=== PATIENT | male | born 1960 ===

== ENCOUNTER 2017-07-26 11:30 | Inpatient (IN) | payer MEDICAID ==
[2017-07-26 12:02] LABS: BASO # 0.02 K/mm3 (0.0-2.0); BASO % 0.2 % (0.0-3.0); EOS # 0.3 (0.0-0.7); EOS % 2.8 % (1.5-5.0); GRAN # 5.83 (1.4-6.5); GRAN % 61.5 % (50.0-68.0); HEMOGLOBIN 15.9 g/dL (14.0-18.0); LYMPH # 2.6 (1.2-3.4); LYMPH % 27.2 % (22.0-35.0); MEAN CELL VOLUME 84.7 fl (80.0-105.0); MEAN CORPUSCULAR HEMOGLOBIN 28.3 pg (25.0-35.0); MEAN CORPUSCULAR HGB CONC 33.5 g/dl (31.0-37.0); MEAN PLATELET VOLUME 10.4 fl (7.0-11.0); MONO # 0.8 (0.1-0.6); MONO % 8.3 % (1.0-6.0); RBC 5.61 10^6/uL (3.5-6.1); WHITE BLOOD COUNT 9.5 10^3/ul (4.5-11.0)
[2017-07-26 12:11] LABS: INR 0.98 (0.93-1.08); PARTIAL THROMBOPLASTIN TIME 30.1 Seconds (25.1-36.5); PROTHROMBIN TIME 11.3 SECONDS (9.4-12.5)
--- NOTE | 2017-07-26 12:17 | ED PDOC ---
Arrival/HPI - General Historian: Patient - General Chief Complaint: Chest Pain Time Seen by Provider: 07/26/17 11:35 - History of Present Illness Narrative History of Present Illness (Text): 07/26/17 12:08 57yo male with PMHx of CAD with 2stents , hypertension present with complaint of chest pain described as "pressure" and SOB since this morning. He also complain of cough with the SOB. Symptoms is exertional. Denies fever, chills, recent URI, orthopnea, nausea, vomiting, abdominal pain, back pain, diaphoresis , any other complaint. (Fahad,Scott A) Past Medical History - Provider Review Nursing Documentation Reviewed: Yes - Cardiac Hx TN: Yes Hx Hypertension: Yes - Pulmonary Hx Respiratory Disorders: No - Neurological Hx Paralysis: No - HEENT Hx HEENT Disorder: Yes (WEARS RX GLASSES) - Renal Hx Renal Disorder: No - Endocrine/Metabolic Hx Diabetes Mellitus Type 1: Yes (dx 20 yr ago) - Hematological/Oncological Hx Blood Transfusions: No Hx Blood Transfusion Reaction: No Hx Leukemia: Yes - Integumentary Hx Dermatological Disorder: No - Musculoskeletal/Rheumatological Hx Musculoskeletal Disorders: No - Gastrointestinal Hx Gastrointestinal Disorders: No - Genitourinary/Gynecological Hx Genitourinary Disorders: No - Psychiatric Hx Emotional Abuse: No Hx Physical Abuse: No Hx Substance Use: No - Surgical History Hx Orthopedic Surgery: Yes (LEFT SHOULDER) - Anesthesia Hx Anesthesia Reactions: No Hx Malignant Hyperthermia: No - Suicidal Assessment Feels Threatened In Home Enviroment: No Family/Social History - Physician Review Nursing Documentation Reviewed: Yes Family/Social History: Unknown Family HX Smoking Status: Never Smoked Hx Alcohol Use: No Hx Substance Use: No Hx Substance Use Treatment: No Allergies/Home Meds Allergies/Adverse Reactions: Allergies No Known Allergies Allergy (Verified 07/26/17 11:41) Home Medications: Home Meds Medication Instructions Recorded Confirmed Insulin Detemir [Levemir] 40 units SC HS 07/05/13 07/26/17 Aspirin [Ecotrin] 81 mg PO DAILY 07/26/17 07/26/17 Insulin Aspart, Recombinant 20 units SC AC 07/26/17 07/26/17 [Novolog] Rosuvastatin Calcium [Crestor] 10 mg PO DAILY 07/26/17 07/26/17 Review of Systems - Physician Review All systems were reviewed & negative as marked: Yes - Review of Systems Constitutional: Normal Eyes: Normal ENT: Normal Respiratory: SOB, Cough. absent: Sputum, Wheezing, Other Cardiovascular: Chest Pain. absent: Palpitations, Edema, Calf Pain, Orthopnea Gastrointestinal: Normal Genitourinary Male: Normal Musculoskeletal: Normal Skin: Normal Neurological: Normal Endocrine: Normal Hemo/Lymphatic: Normal Psychiatric: Normal Physical Exam Vital Signs Reviewed: Yes Temperature: Afebrile Blood Pressure: Hypertensive Pulse: Tachycardic Respiratory Rate: Normal Appearance: Positive for: Well-Appearing, Non-Toxic, Comfortable Pain Distress: None Mental Status: Positive for: Alert and Oriented X 3 Finger Stick Blood Glucose: 190 - Systems Exam Head: Present: Atraumatic, Normocephalic Pupils: Present: PERRL Extroacular Muscles: Present: EOMI Conjunctiva: Present: Normal Mouth: Present: Moist Mucous Membranes Neck: Present: Normal Range of Motion Respiratory/Chest: Present: Clear to Auscultation, Good Air Exchange. No: Respiratory Distress, Accessory Muscle Use, Wheezes, Decreased Breath Sounds, Rales, Retracting, Rhonchi Cardiovascular: Present: Regular Rate and Rhythm, Normal S1, S2. No: Murmurs Abdomen: Present: Normal Bowel Sounds. No: Tenderness, Distention, Peritoneal Signs Back: Present: Normal Inspection Upper Extremity: Present: Normal Inspection. No: Cyanosis, Edema Lower Extremity: Present: Normal Inspection. No: Edema Neurological: Present: GCS=15, CN II-XII Intact, Speech Normal Skin: Present: Warm, Dry, Normal Color. No: Rashes Psychiatric: Present: Alert, Oriented x 3, Normal Insight, Normal Concentration Vital Signs Temp Pulse Pulse Resp BP Pulse Ox 07/26/17 15:46 72 177/93 H 07/26/17 15:12 96 H 194/106 H 07/26/17 15:01 194/106 H 07/26/17 14:50 88 88 15 203/122 H 07/26/17 13:54 89 20 191/121 H 100 07/26/17 11:39 97.1 F L 103 H 18 192/98 H 98 Medical Decision Making ED Course and Treatment: 07/26/17 19:41 PT in ED for stated history. He was hypertensive and tachy on presentation. His BP improved in ED with Lopressor. PT was a poor historian and unable to provide history of his home medications. Pt likely not complaint with his medications. His CE was negative in ED. CXR NAD EKG NSR with incomplete RBBB @ 99bpm. Review of pt's chart show that he had a negative stress test a year ago. He needs admission for further evaluation, secondary to his cardiac risk factors. Case was CORTES Taylor who is pt's Synthetic Resin Operator Case was CORTES Teresa and pt was admitted to her service. (Fahad,[facility] A) Dr. Taylor evaluated patient in ED. I administered lopressor and nitrates with improvement in BP. No active chest pain while in the ED. (Alin Montes) - Lab Interpretations Lab Results: 07/26/17 11:50 07/26/17 11:50 Lab Results 07/26/17 11:50: PT 11.3, INR 0.98, APTT 30.1 07/26/17 11:50: Sodium 141, Potassium 4.5, Chloride 105, Carbon Dioxide 26, Anion Gap 15, BUN 23 H, Creatinine 1.2, Est GFR ( Amer) > 60, Est GFR ( Non-Af Amer) > 60, Random Glucose 149 H, Calcium 10.4, Magnesium 2.2, Total Bilirubin 0.5, AST 27, ALT 38, Alkaline Phosphatase 62, Lactate Dehydrogenase 453, Total Creatine Kinase 121, Troponin I < 0.01 D, NT-Pro-B Natriuret Pep 41.3, Total Protein 7.9, Albumin 4.3, Globulin 3.5, Albumin/Globulin Ratio 1.2 07/26/17 11:50: WBC 9.5 D, RBC 5.61, Hgb 15.9, Hct 47.5, MCV 84.7, MCH 28.3, MCHC 33.5, RDW 15.0 H, Plt Count 232, MPV 10.4, Gran % 61.5, Lymph % (Auto) 27.2 , [place] % (Auto) 8.3 H, Eos % (Auto) 2.8, Baso % (Auto) 0.2, Gran # 5.83, Lymph # (Auto) 2.6, [place] # (Auto) 0.8 H, Eos # (Auto) 0.3, Baso # (Auto) 0.02 - RAD Interpretation Radiology Orders: 07/26/17 11:48 CHEST PORTABLE [RAD] Stat - Medication Orders Current Medication Orders: Aspirin (Ecotrin) 81 mg PO DAILY [facility] Atorvastatin Calcium (Lipitor) 20 mg PO DAILY [facility] Clopidogrel Bisulfate (Plavix) 75 mg PO DAILY [facility] Insulin Human Regular (Humulin R Med) 0 units SC ACHS [facility] PRN Reason: Protocol Isosorbide Mononitrate (Imdur Er) 30 mg PO DAILY [facility] Last Admin: 07/26/17 17:03 Dose: 30 mg Pantoprazole Sodium (Protonix Ec Tab) 40 mg PO DAILY [facility] Last Admin: 07/26/17 17:03 Dose: 40 mg Discontinued Medications Acetaminophen (Tylenol 325mg Tab) 650 mg PO STAT STA Stop: 07/26/17 19:51 Last Admin: 07/26/17 20:00 Dose: 650 mg MAR Pain/Vitals Document 07/26/17 20:00 SSE (Rec: 07/26/17 20:00 SSE [id number]) Pain Reassessment Is This A Pain ReAssessment? Yes Sleep Is patient sleeping during reassessment? No Presence of Pain Presence of Pain Yes Pain Scale Used Pain Scale Used Numeric Location Description Constant Intensity 8 Scale Used Numeric Aspirin (Aspirin) 325 mg PO STAT STA Stop: 07/26/17 11:48 Last Admin: 07/26/17 11:55 Dose: 325 mg Clopidogrel Bisulfate (Plavix) 300 mg PO STAT STA Stop: 07/26/17 15:12 Last Admin: 07/26/17 15:25 Dose: 300 mg Metoprolol Tartrate (Lopressor) 5 mg IVP STAT STA Stop: 07/26/17 15:03 Last Admin: 07/26/17 15:12 Dose: 5 mg IVP Administration Document 07/26/17 15:12 TA (Rec: 07/26/17 15:12 TA [id number]) Charges for Administration # of IVP Administrations 1 MAR Pulse and Blood Pressure Document 07/26/17 15:12 TA (Rec: 07/26/17 15:12 TA [id number]) Pulse Pulse Rate (60-90) 96 Blood Pressure Blood Pressure (100/60-150/90) 194/106 Metoprolol Tartrate (Lopressor) 25 mg PO BID STA Stop: 07/26/17 15:06 Last Admin: 07/26/17 17:03 Dose: 25 mg MAR Pulse and Blood Pressure Document 07/26/17 17:03 KATIE (Rec: 07/26/17 17:04 [id number]) Pulse Pulse Rate (60-90) 71 Blood Pressure Blood Pressure (100/60-150/90) 132/75 Nitroglycerin (Nitro-Bid 2% Oint) 1 ea TOP ONCE STA Stop: 07/26/17 13:55 Last Admin: 07/26/17 14:08 Dose: 1 ea Pneumococcal Polyvalent Vaccine (Pneumovax 23 Vaccine) 0.5 ml IM .ONCE ONE Stop: 07/26/17 15:08 Disposition/Present on Arrival - Present on Arrival Any Indicators Present on Arrival: No History of DVT/PE: No History of Uncontrolled Diabetes: No Urinary Catheter: No History of Decub. Ulcer: No History Surgical Site Infection Following: None - Disposition Have Diagnosis and Disposition been Completed?: Yes Disposition Time: 13:35 Patient Plan: Admission - Disposition Diagnosis: Chest pain, Uncontrolled hypertension Disposition: HOSPITALIZED Patient Problems: Current Active Problems Problem Status Onset Chest pain Acute Uncontrolled hypertension Acute Condition: FAIR
[2017-07-26 12:18] LABS: ALB/GLOB RATIO 1.2 (1.1-1.8); ALBUMIN 4.3 g/dL (3.0-4.8); ALT/SGPT 38 U/L (7-56); AST/SGOT 27 U/L (17-59); BLOOD UREA NITROGEN 23 mg/dL (7-21); CALCIUM 10.4 mg/dL (8.4-10.5); GFR AFRICAN-AMERICAN > 60; GFR NON-AFRICAN AMERICAN > 60
[2017-07-26 12:24] LABS: B-TYPE NATRIURETIC PEPTIDE 41.3 pg/mL (0-450); TROPONIN I < 0.01 ng/mL
--- NOTE | 2017-07-26 13:03 | RAD ---
HISTORY: chest pain COMPARISON: 04/03/2015 open FINDINGS: LUNGS: No active pulmonary disease. PLEURA: No significant pleural effusion identified, no pneumothorax apparent. CARDIOVASCULAR: No radiographic findings to suggest acute or significant cardiovascular disease. OSSEOUS STRUCTURES: No significant abnormalities. VISUALIZED UPPER ABDOMEN: Normal. OTHER FINDINGS: None. IMPRESSION: No active disease. No significant interval change compared to the prior examination(s).
[2017-07-26] MEDS ORDERED: Nitroglycerin 2% Ointment Foilpak UD TOP STA (13:54)
[2017-07-26] MEDS ORDERED: Metoprolol 1 mg/ml Inj IVP STA (15:02)
[2017-07-26 15:07] VITALS: BMI 24.2
[2017-07-26] MEDS ORDERED: Pneumococcal 23-Valent Vaccine IM ONE (15:07)
[2017-07-26] MEDS ORDERED: Influenza Vaccine 60 mcg/0.5 mL SYR (4YR UP) IM ONE (15:07)
--- NOTE | 2017-07-26 16:42 | CARD ---
APPROVED REPORT EKG Measurement Heart [id number] <Conclusion> Poor data quality, interpretation may be adversely affected Normal sinus rhythm Incomplete right bundle branch block Borderline ECG
[2017-07-26] MEDS: Pantoprazole 40 mg EC Tab PO SCH (17:03)
[2017-07-27 07:27] LABS: HDL CHOLESTEROL 39 mg/dL (29-60)
[2017-07-27 07:38] LABS: LDL CHOLESTEROL 145 mg/dL (0-129); TROPONIN I < 0.01 ng/mL
[2017-07-27] MEDS: Insulin Reg-MEDIUM-Coverage SC SCH ×4 (08:37→23:50)
[2017-07-27] MEDS: Pantoprazole 40 mg EC Tab PO SCH (09:48)
--- NOTE | 2017-07-27 12:10 | PN ---
DATE: 07/27/2017 LOCATION: The patient is in room 364, bed 2. REASON FOR CONSULTATION: Chest pain, coronary artery disease, history of stent insertion, hypertension, diabetes and hypercholesterolemia. SUBJECTIVE: The patient lying flat in bed without any shortness of breath. Denies palpitations. His chest pain has improved. PHYSICAL EXAMINATION VITAL SIGNS: Blood pressure 116/64, respirations 20, pulse 76, temperature 97.4. HEENT: Head is normocephalic. Pupils normal. Conjunctivae normal. Nose and throat normal. NECK: JVP low. Carotids equal. THORAX: AP diameter normal. LUNGS: Clear. CARDIOVASCULAR: S1 and S2. ABDOMEN: Soft. No tenderness. No organomegaly. Bowel sounds normal. EXTREMITIES: No clubbing. No cyanosis. LABORATORY DATA: WBC 9.5, hemoglobin 15.9, hematocrit 47.5 and platelets 232,000. Sodium 141, potassium 4.5, BUN 23, creatinine 1.2, random , random glucose 149, troponin less than 0.01, triglycerides 184, cholesterol 227, LDL 145, HDL 39. TSH 3.76. DIAGNOSES: Coronary artery disease, chest pain, new onset of angina from last few weeks, hypertension, diabetes, hypercholesterolemia. PLAN: Patient already started on Lopressor; Imdur; patient was started on aspirin 81 mg daily; isosorbide mononitrate 30 mg daily; Lipitor 20 mg daily; metoprolol 25 mg b.i.d.; Plavix 300 mg loading dose was given yesterday, from today, patient is on 75 mg daily; Protonix 40 daily. Fingerstick sugar coverage started. Patient will need cardiac catheterization, we will try to arrange for tomorrow morning. We will put n.p.o. alvin. We will follow. Pauline Taylor MD
--- NOTE | 2017-07-28 00:25 | HP ---
CHIEF COMPLAINT: Chest pain. HISTORY OF PRESENT ILLNESS: Mr. Teodoro Russo is a 57-year-old male with past medical history of coronary artery disease with two cardiac stents, hypertension, insulin-dependent diabetes mellitus, noncompliance, history of leukemia, came with pressure and shortness of breath on the day of admission and is complaining of cough with shortness of breath. Symptoms increased with exertion; however, no fever, no chills. No nausea, vomiting, diarrhea. Denies upper respiratory tract infection symptoms. No diaphoresis. PAST MEDICAL HISTORY: As above; history of RI; hypertension; diabetes mellitus type 1, insulin requiring; history of leukemia; orthopedic surgery of the left shoulder. FAMILY HISTORY: Father and mother, noncontributory. HABITS: Never smoked. No drug. No ethanol. ALLERGIES: PATIENT IS NOT ALLERGIC WITH ANY MEDICATIONS. HOME MEDICATIONS: Levemir, Ecotrin, insulin, Crestor. REVIEW OF SYSTEMS: Patient was examined at the bedside on 07/27/2017 and looking comfortable. No nausea, vomiting, or diarrhea. No hematuria or hematochezia. Still having pressure. No shortness of breath. No sputum or wheezing. No palpitation or orthopnea, but sometime still coughing. No fever, no chills. PHYSICAL EXAMINATION: VITAL SIGNS: Temperature 98.6, pulse 84, blood pressure 114/70, respiratory rate 20. HEENT: Head normocephalic, atraumatic. Eyes PERRLA. Extraocular muscles intact. Conjunctivae clear. Nose patent. Mucous membrane moist. NECK: Supple. No carotid bruit. No JVD. No thyromegaly. CHEST: Bilaterally symmetrical. HEART: S1, S2 positive. LUNGS: Clear to auscultation. ABDOMEN: Soft. Bowel sounds present. No organomegaly. EXTREMITIES: No edema. No cyanosis. NEUROLOGICAL: Patient is awake and alert. Follows simple commands. LABORATORY DATA: White blood cell 9.5, hemoglobin 15.9, hematocrit 47.5, platelets 232. Glucose 245, 183. Cholesterol 227, triglyceride 184. ASSESSMENT AND PLAN: Mr. Teodoro Russo is a 57-year-old male with insulin-dependent diabetes mellitus type 1; hypercholesterolemia; hypertriglyceridemia; history of leukemia, got chemotherapy; history of coronary artery disease, status post cardiac stenting, came with chest pain, new onset angina for last few weeks, hypertension. Patient was started on Lopressor, Imdur. Started on aspirin, isosorbide, Lipitor, metoprolol, Plavix loading dose given yesterday and now on Plavix 75, Protonix 40, getting fingerstick and sliding scale. Catheterization tomorrow and after that if everything is okay, tomorrow evening, we will discharge the patient. Meanwhile, continue present treatment, repeat labs. We will follow up. Appreciated Dr. Taylor's input. Pratibha Teresa MD
[2017-07-28 06:58] VITALS: O2SAT 96
[2017-07-28] MEDS: Insulin Reg-MEDIUM-Coverage SC SCH (07:23)
[2017-07-28] MEDS ORDERED: Phenylephrine 10 mg/ml Inj ONE (08:44)
[2017-07-28] MEDS ORDERED: HEPARIN SODIUM/NS 2,000 ML IV ONE (08:44)
[2017-07-28] MEDS ORDERED: Lidocaine 2% Inj (20ml) ONE (08:44)
[2017-07-28] MEDS ORDERED: Nitroglycerin 50mg in D5W 50 MG/250 ML BOTTLE IV ONE (08:44)
[2017-07-28] MEDS ORDERED: Verapamil 2 ML ONE (08:44)
[2017-07-28] MEDS ORDERED: Iohexol 350 MG/100 ML VIAL ONE (08:45)
[2017-07-28] MEDS ORDERED: Iohexol 350mgl/ml 50 ML ONE (08:45)
[2017-07-28] MEDS ORDERED: Midazolam 2 MG/2 ML VIAL ONE (09:05)
[2017-07-28] MEDS ORDERED: Eptifibatide 20 mg/10mL Inj IVP ONE (09:33)
--- NOTE | 2017-07-28 09:36 | CON ---
DATE: 07/26/2017 LOCATION: The patient in emergency room. REASON FOR CONSULTATION: Chest pain. HISTORY OF PRESENT ILLNESS: The patient is a 57-year-old male who has history of coronary artery disease, status post LAD stent on 07/06/[address] Perez Roca, diabetes mellitus, hypertension, hyperlipidemia, admitted with a history that since last few weeks he is getting chest pain on exertion. Since he had the stent, he did not have any pain but this started few weeks ago and once he stops, the patient's pain disappears, also he gets pain if he carries shopping bag or go upstairs and sometimes he also breaks out sweating with this pain. PAST MEDICAL HISTORY: Significant for diabetes mellitus, hypertension, hyperlipidemia, coronary artery disease, status post MO about 6 to 7 years ago. Patient was taken to [facility] at that time with stent in LAD was put in and later on patient had another stent done by Dr. Perez Roca on 07/06/2013 again in LAD, drug-eluting stent was inserted. Patient is a known case of diabetes mellitus, hypertension, hyperlipidemia. SOCIAL HISTORY: Denies smoking. Denies drinking. ALLERGIES: PATIENT DENIES ANY ALLERGIES. MEDICATIONS: Patient's home medication were Crestor 10 mg daily, aspirin 81 mg daily, Levemir 40 units subcu at bedtime, NovoLog 20 units subcu before meals. FAMILY HISTORY: Not significant. PHYSICAL EXAMINATION: VITAL SIGNS: On examination, blood pressure is 194/106, respirations 18, pulse 88. Patient is afebrile. HEENT: Head is normocephalic. Eyes: Pupils normal, conjunctivae normal. Nose and throat normal. NECK: JVP low. Carotid equal. THORAX: AP diameter normal. LUNGS: Clear. CARDIOVASCULAR: S1 and S2. ABDOMEN: Soft. No tenderness. No organomegaly. Bowel sounds normal. EXTREMITIES: No clubbing. No cyanosis. LABORATORY DATA: Shows WBC 9.5, hemoglobin 15.9, hematocrit 47.5, platelet 232. Sodium 141, potassium 4.5, BUN 15, creatinine 1.2. Random sugar 149. AST, ALT normal. Troponin less than 0.01. Protein and albumin normal. PT/INR, PTT normal. DIAGNOSTIC DATA: Chest x-ray, no significant abnormality. EKG showed regular sinus rhythm, ST-T changes. DIAGNOSES: Chest pain, recent onset of angina, coronary artery disease, history of two stents in the left anterior descending in the past, hypertension, diabetes mellitus, hyperlipidemia. PLAN: Patient had stress test on 07/24/2016, which showed fixed defect with ejection fraction of 78%. Echo on 04/05/2015 showed normal chamber sizes, EF 75%, trace mitral regurgitation, trace tricuspid regurgitation, RVSP 19 mmHg. I will give loading dose of Plavix 300 mg p.o. today and then 75 daily, Ecotrin 81 mg daily, Lopressor 25 b.i.d., Lipitor 20 mg daily, Imdur 30 p.o. daily, Protonix 40 daily, aspirin 81 mg daily, already received 325 mg p.o. today. Fingerstick sugar coverage. Patient will need cardiac catheterization. We will repeat troponin and EKG. We will follow. Pauline Taylor MD
[2017-07-28] MEDS ORDERED: Sodium Chloride 0.9% 1,000 ML IV SCH (10:45)
[2017-07-28 12:40] VITALS: TEMP 97.8
[2017-07-28] MEDS: Insulin Reg-LOW-Coverage SC SCH ×2 (12:41→17:03)
[2017-07-28] MEDS: Pantoprazole 40 mg EC Tab PO SCH (12:44)
--- NOTE | 2017-07-28 12:46 | CARD ---
APPROVED REPORT EKG Measurement Heart [id number] [id number] <Conclusion> Normal sinus rhythm NSSTW changes Prolonged QTc
[2017-07-28 13:06] LABS: BASO # 0.01 K/mm3 (0.0-2.0); BASO % 0.1 % (0.0-3.0); EOS % 0.2 % (1.5-5.0); GRAN # 11.05 (1.4-6.5); GRAN % 86.9 % (50.0-68.0); HEMOGLOBIN 14.3 g/dL (14.0-18.0); LYMPH # 1.1 (1.2-3.4); LYMPH % 8.6 % (22.0-35.0); MEAN CELL VOLUME 83.8 fl (80.0-105.0); MEAN CORPUSCULAR HGB CONC 33.4 g/dl (31.0-37.0); MEAN PLATELET VOLUME 9.7 fl (7.0-11.0); MONO # 0.5 (0.1-0.6); MONO % 4.2 % (1.0-6.0); RBC 5.11 10^6/uL (3.5-6.1); RED CELL DISTRIBUTION WIDTH 14.5 % (11.5-14.5); WHITE BLOOD COUNT 12.7 10^3/ul (4.5-11.0)
[2017-07-28 13:16] VITALS: RESP 20
--- NOTE | 2017-07-28 13:28 | CARD ---
APPROVED REPORT Procedure(s) performed: Left Heart Catheterization PTCA with Stenting of Mid LAD with TAMIKO PTCA with Stenting of Proximal LAD with TAMIKO HISTORY 7 days), diabetes mellitus with insulin treatment , previous diagnostic cath, previous PCI (The PCI date was 06/26/2013), hypertension , dyslipidemia , Hx of PTCA twice admitted with ACS/ Unstable angina, Hx of Leukemia s/p Chemo on remission, Hx of DM T2 and HTN as well.. INDICATION The indication(s) include : unstable angina . CASE TECHNIQUE The patient was brought urgently to the Cardiac Catheterization Laboratory in a fasting state and was prepped and draped in a sterile manner. The left wrist was infiltrated with 2% Lidocaine subcutaneous anesthesia. A 6FR GLIDESHEATH ACCESS KIT sheath was inserted into the left radial artery without difficulty. Coronary angiography was performed using coronary diagnostic catheters. The left coronary system was accessed and visualized with a Diagnostic ,5 Fr JL 4 catheter. The right coronary system was accessed and visualized with a Diagnostic ,5 Fr JR 3.5 catheter. The left ventricle was accessed and visualized with a 5 Fr Pigtail 145 (Angled) catheter. Left ventricular/Aortic Valve gradient assessed on pullback. Left ventriculogram was performed in EVANS projection. The patient tolerated the procedure well and there were no complications associated with the procedure. Vessel Analysis The patient's coronary anatomy is left dominant. The left main coronary artery is a medium size vessel with diffuse calcification noted throughout this vessel and without significant stenosis. There is a 20-30% stenosis in the ostial segment. The left main bifurcates to the left anterior descending and circumflex. The left anterior descending artery is a medium size vessel with diffuse calcification noted throughout this vessel and with significant stenosis. There is a 80-90% stenosis in the proximal segment. instent restenosis, and Mid LAD has Multiple 80-90% stenoses. The first diagonal branch is a small size vessel with diffuse calcification noted throughout this vessel and without significant stenosis. The second diagonal branch is a medium size vessel with diffuse calcification noted throughout this vessel and without significant stenosis. The circumflex artery is a medium size vessel with diffuse calcification noted throughout this vessel and without significant stenosis. patent stent in Mid segment There is a 40% stenosis in the distal segment. The first obtuse marginal branch is a small size vessel with diffuse calcification noted throughout this vessel and without significant stenosis. The second obtuse marginal branch is a small size vessel with diffuse calcification noted throughout this vessel and without significant stenosis. The left posterior descending artery is a medium size vessel with diffuse calcification noted throughout this vessel and without significant stenosis. The right coronary artery is a small size vessel with diffuse calcification noted throughout this vessel and without significant stenosis. There is a 60-70% stenosis in the mid segment. Non dominant smal artery Left Ventricle The left ventricle is normal in size with normal contractility. There was no cardiomyopathy. The left ventricular ejection fraction is estimated to be 60-65%. The left ventricular end diastolic pressure is 18 mmHg. There was no gradient across the aortic valve upon pullback. PCI Technique Lesion Anticoagulation was achieved with Heparin. Percutaneous coronary intervention was performed on the mid left anterior descending artery segment. The lesion stenosis prior to intervention was 80-90% with GUILLERMO 1 flow. A 6 Fr XB 3 Guide Catheter was used to engage the ostium. A Luge 182 Interventional Guidewire was used to cross the lesion. BALLOON DILATION A Balloon catheter 2.0 x 15 mm Mini Trek RX was inserted and inflated up to 8.00atm for 19seconds. STENT DEPLOYMENT A drug-eluting stent 2.5 x 30 mm Resolute TAMIKO was inserted and inflated up to 8.00atm for 19seconds. Final angiography reveals 0 % stenosis with GUILLERMO 3 flow. PCI Technique Lesion 2 Percutaneous Coronary Intervention was performed on the proximal left anterior descending artery segment. The lesion stenosis prior to intervention was 80-90% with GUILLERMO 1 flow. A 6 Fr XB 3 Guide Catheter was used to engage the ostium. A Luge 182 Interventional Guidewire was used to cross the lesion. BALLOON DILATION A Balloon catheter 2.0 x 15 mm Mini Trek RX was inserted and inflated up to lucina for seconds. then we used Scorring Balloon 2.5/10 and did PTCA for Instent restenosis for 10 atnos STENT DEPLOYMENT A drug-eluting stent 2.5 x 30 mm Resolute TAMIKO was inserted and inflated up to 10.00atm for 21seconds. and in Between two stent we put 2.5/8 at 14 atmosphere Final angiography reveals 0 % stenosis with GUILLERMO 3 flow. Conclusion High grade Stenosis In Proximal Instent restenosis 80-90%, and Mid LAD has multiple Stenosis 80-90%. Patent Stent Mid Dominant Circumflex. Preserved LV FX. EF-60-65%, EDP_18 mmof Hg. Successful PTCA with TAMIKO of Proximal and Mid LAD. Recommendations Cardiac Rehabilitation ReferralDaily ASA with Plavix for at least one year Aggressive Medical TherapyCardiac Risk Reduction Program CC; drs. Teresa/ Brandon.
[2017-07-28 13:29] LABS: BLOOD UREA NITROGEN 17 mg/dL (7-21); CALCIUM 9.3 mg/dL (8.4-10.5); GFR AFRICAN-AMERICAN > 60; GFR NON-AFRICAN AMERICAN > 60
[2017-07-28] MEDS ORDERED: Bacitracin 500 Units/gm Oint Foilpak UD ONE (15:06)
--- NOTE | 2017-07-28 16:18 | PN ---
DATE: 07/28/2017 REASON FOR THE CONSULTATION AND FOLLOWUP: Unstable angina, the patient on vent, status post PTCA with drug-eluting stents, two stents in LAD. SUBJECTIVE: Denies any chest pain, shortness of breath, any palpitation. PHYSICAL EXAMINATION: VITAL SIGNS: Temperature afebrile, heart rate 79, blood pressure ____. HEENT: PERRLA. Extraocular muscles intact. NECK: Supple. No carotid bruit. No thyromegaly. CHEST: Clear to auscultation. HEART: S1 and S2 regular. ABDOMEN: Soft. EXTREMITIES: Clubbing and cyanosis, negative. LABORATORY DATA: Blood workup as follows: WBC on admission 9.5, hemoglobin 15.9, hematocrit of 47.5, platelet count 232,000. Chemistry on admission: Sodium 141, potassium 4.5, chloride 105, carbon dioxide 26, anion gap of 15, BUN , creatinine 1.2, total cholesterol 227, triglycerides 184, LDL 145, HDL 39, TSH 3.79, troponin 0.02 x negative. IMPRESSION: Acute coronary syndrome, unstable angina, diabetes, hypertension, hyperlipidemia, history of coronary artery disease, status post myocardial infarction six to seven years ago, the patient has been in [facility] at that time with a stent in the left anterior descending. Later on, the patient had another stent by Dr. Perez Suero on 07/06/2013, possibly in the circumflex, who admitted yesterday with unstable angina; history of leukemia, on remission, being treated at [facility]. Admitted yesterday with unstable angina. The patient underwent cardiac catheterization that revealed left main ostial 20%-30% stenosis, dominant circumflex, patent stent. Distal to the stent, 30-40% stenosis noted. Left anterior descending has proximal stent noted, in-stent is 80% to 90% noted and mild left anterior descending is long tubular, 80-90% stenosis noted. Nondominant right coronary artery. Left ventriculogram shows ejection fraction 55%-60%, end diastolic pressure in the range of 18. In view of above, two stents were placed, drug-eluting stent in the proximal and mid left anterior descending, 2.5 mm diameter, 30 mm length and in between the 2 stents, another 8 mm stent, 2.5, was placed between two stents. The patient successfully tolerated the procedure well. Left radial approach was done. PLAN: To start beta-rolando, 25 mg of Lopressor twice a day, start losartan 25 mg daily, insulin coverage and we will discontinue nitroglycerin. Continue aspirin, continue Plavix mandatory for 1 year, preferably for extended period of time. Increase atorvastatin to 40 mg daily. Discussed with the daughter, Urmila, on the telephone in length and explained the patient's condition who is in [place], telephone number [phone]. Also, explained to the patient. We will discuss with you. Thank you, Dr. Teresa, for providing us the opportunity in taking care of the patient, Teodoro Karan. Pauline Joseph MD
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
[2017-07-28 17:11] VITALS: BP 129/70; PULSE 81
== END 2017-07-28 17:55 | disposition home or self-care (01) | DRG 854 ==
LOC: ED 11:30 → ERH 13:57 → 2RNO 16:16
PROVIDERS: ADMIT Internal Medicine; ATTEND Internal Medicine
PROC: 027035Z Dilation of Coronary Artery, One Artery with Two Drug-eluting Intraluminal Devices, Percutaneous Approach (ICD-10-PCS; principal; 2017-07-28)
PROC: 4A023N7 Measurement of Cardiac Sampling and Pressure, Left Heart, Percutaneous Approach (ICD-10-PCS; 2017-07-28)
PROC: B2111ZZ Fluoroscopy of Multiple Coronary Arteries using Low Osmolar Contrast (ICD-10-PCS; 2017-07-28)
PROC: B2151ZZ Fluoroscopy of Left Heart using Low Osmolar Contrast (ICD-10-PCS; 2017-07-28)
DX: I25.110 Atherosclerotic heart disease of native coronary artery with unstable angina pectoris (principal); T82.855A Stenosis of coronary artery stent, initial encounter; G90.511 Complex regional pain syndrome I of right upper limb; B19.20 Unspecified viral hepatitis C without hepatic coma; I10 Essential (primary) hypertension; E10.9 Type 1 diabetes mellitus without complications; E78.1 Pure hyperglyceridemia; E78.00 Pure hypercholesterolemia, unspecified; G47.00 Insomnia, unspecified; F31.9 Bipolar disorder, unspecified; F43.10 Post-traumatic stress disorder, unspecified; Y83.1 Surgical operation with implant of artificial internal device as the cause of abnormal reaction of the patient, or of later complication, without mention of misadventure at the time of the procedure; Z92.21 Personal history of antineoplastic chemotherapy; I25.2 Old myocardial infarction; Z79.4 Long term (current) use of insulin; Z91.19 Patient's noncompliance with other medical treatment and regimen; Z85.6 Personal history of leukemia

== ENCOUNTER 2017-11-27 06:10 | Day surgery (SDC) | payer MEDICAID ==
[2017-11-27 06:14] VITALS: BMI 22.9
[2017-11-27 06:15] VITALS: O2SAT 98
--- NOTE | 2017-11-27 06:34 | ED PDOC ---
Arrival/HPI - General Chief Complaint: Chest Pain Time Seen by Provider: 11/27/17 06:16 Historian: Patient - History of Present Illness Narrative History of Present Illness (Text): 11/27/17 06:34 Teodoro Russo is a 57 year old male, whose past medical history includes diabetes, hypertension, and CAD s/p OR with 2 coronary stents, who presents to the Emergency department complaining of chest pain recently. Patient notes he was seen by his occupational health professional yesterday. Patient states this morning he woke up with chest pressure again and was advised to come to the ER for further evaluation. Patient took Plavix and Brilinta at home prior to arrival. Patient denies any fever, chills, shortness of breath, nausea, back pain, neck pain, headache, dizziness, or any other complaints. Agency Sales Development Associate: Dr. Joseph Symptom Onset: Gradual Symptom Course: Unchanged Quality: Pressure Activities at Onset: Light Context: Home Past Medical History - Provider Review Nursing Documentation Reviewed: Yes - Infectious Disease Hx of Infectious Diseases: None - Cardiac Hx OR: Yes Hx Hypertension: Yes - Pulmonary Hx Respiratory Disorders: No - Neurological Hx Paralysis: No - HEENT Hx HEENT Disorder: Yes (WEARS RX GLASSES) - Renal Hx Renal Disorder: No - Endocrine/Metabolic Hx Diabetes Mellitus Type 1: Yes (dx 20 yr ago) - Hematological/Oncological Hx Blood Transfusions: No Hx Blood Transfusion Reaction: No Hx Leukemia: Yes - Integumentary Hx Dermatological Disorder: No - Musculoskeletal/Rheumatological Hx Musculoskeletal Disorders: No - Gastrointestinal Hx Gastrointestinal Disorders: No - Genitourinary/Gynecological Hx Genitourinary Disorders: No - Psychiatric Hx Emotional Abuse: No Hx Physical Abuse: No Hx Substance Use: No - Surgical History Hx Cardiac Catheterization: Yes (stent x4) Hx Orthopedic Surgery: Yes (LEFT SHOULDER) - Anesthesia Hx Anesthesia Reactions: No Hx Malignant Hyperthermia: No - Suicidal Assessment Feels Threatened In Home Enviroment: No Family/Social History - Physician Review Nursing Documentation Reviewed: Yes Family/Social History: Unknown Family HX Smoking Status: Never Smoked Hx Alcohol Use: No Hx Substance Use: No Hx Substance Use Treatment: No Allergies/Home Meds Allergies/Adverse Reactions: Allergies No Known Allergies Allergy (Verified 11/27/17 06:14) Home Medications: Home Meds Medication Instructions Recorded Confirmed Insulin Detemir [Levemir] 40 units SC HS 07/05/13 11/27/17 Aspirin [Ecotrin] 81 mg PO DAILY 07/26/17 11/27/17 Insulin Aspart, Recombinant 20 units SC AC 07/26/17 11/27/17 [Novolog] Atorvastatin [Lipitor] 80 mg PO HS 11/27/17 11/27/17 DULoxetine [Cymbalta] 30 mg PO DAILY 11/27/17 11/27/17 Digoxin [Digitek] 125 mcg PO DAILY 11/27/17 11/27/17 Ergocalciferol (Vitamin D2) 50,000 unit PO QWK 11/27/17 11/27/17 [Vitamin D2] Ibuprofen [Motrin Tab] 800 mg PO Q8 PRN 11/27/17 11/27/17 Montelukast Sodium [Singulair] 10 mg PO DAILY 11/27/17 11/27/17 Nitroglycerin [Nitrostat] 0.4 mg SL Q15MIN PRN 11/27/17 11/27/17 Ticagrelor [Brilinta] 90 mg PO BID 11/27/17 11/27/17 Review of Systems - Physician Review All systems were reviewed & negative as marked: Yes - Review of Systems Constitutional: Normal. absent: Fevers Eyes: Normal ENT: Normal Respiratory: Normal. absent: SOB, Cough Cardiovascular: Chest Pain Gastrointestinal: Normal. absent: Abdominal Pain, Diarrhea, Nausea, Vomiting Genitourinary Male: Normal. absent: Dysuria, Frequency, Hematuria, Urinary Output Changes Musculoskeletal: Normal. absent: Back Pain, Neck Pain Skin: Normal. absent: Rash Neurological: Normal. absent: Headache, Dizziness Endocrine: Normal Hemo/Lymphatic: Normal Psychiatric: Normal Physical Exam Vital Signs Reviewed: Yes Vital Signs Pulse Resp BP Pulse Ox 11/27/17 06:14 79 18 130/71 98 Temperature: Afebrile Blood Pressure: Normal Pulse: Regular Respiratory Rate: Normal Appearance: Positive for: Well-Appearing, Non-Toxic, Comfortable Pain Distress: None Mental Status: Positive for: Alert and Oriented X 3 - Systems Exam Head: Present: Atraumatic, Normocephalic Pupils: Present: PERRL Extroacular Muscles: Present: EOMI Conjunctiva: Present: Normal Mouth: Present: Moist Mucous Membranes Neck: Present: Normal Range of Motion. No: Meningeal Signs, MIDLINE TENDERNESS , Paraspinal Tenderness Respiratory/Chest: Present: Clear to Auscultation, Good Air Exchange. No: Respiratory Distress, Accessory Muscle Use Cardiovascular: Present: Regular Rate and Rhythm, Normal S1, S2. No: Murmurs Abdomen: No: Tenderness, Distention, Peritoneal Signs Back: Present: Normal Inspection. No: CVA Tenderness, Midline Tenderness, Paraspinal Tenderness Upper Extremity: Present: Normal Inspection. No: Cyanosis, Edema Lower Extremity: Present: Normal Inspection. No: Edema Neurological: Present: GCS=15, CN II-XII Intact, Speech Normal, Motor Func Grossly Intact, Normal Sensory Function, Normal Cerebellar Funct Skin: Present: Warm, Dry, Normal Color. No: Rashes Psychiatric: Present: Alert, Oriented x 3, Normal Insight, Normal Concentration Medical Decision Making ED Course and Treatment: 11/27/17 06:34 Impression: 57 year old male presents with chest pressure. Plan: -- EKG -- Chest X-ray -- Labs, cardiac enzymes, digoxin level -- Reassess and disposition Prior Visits: Notes and results from previous visits were reviewed. On 07/26/2017, pt was seen in the Emergency department for chest pain and shortness of breath. Pt was admitted to the hospital for further evaluation. Progress Notes: Reviewed EKG, NSR at 71 bpm. Incomplete RBBB. Non-specific ST/T wave changes. 11/27/17 07:02 Case discussed with patients occupational health professional .Requested patient admitted to cardiac catheter suite for further intervention. - RAD Interpretation Narrative RAD Interpretations (Text): 11/27/17 06:58 CXR- No acute process Radiology Orders: 11/27/17 06:36 CHEST PORTABLE [RAD] Stat Bat Lathe Operator: ED Physician - EKG Interpretation Interpreted by ED Physician: Yes Type: 12 lead EKG - Scribe Statement The provider has reviewed the documentation as recorded by the Scribe Radha Raygoza All medical record entries made by the Scribe were at my direction and personally dictated by me. I have reviewed the chart and agree that the record accurately reflects my personal performance of the history, physical exam, medical decision making, and the department course for this patient. I have also personally directed, reviewed, and agree with the discharge instructions and disposition. Disposition/Present on Arrival - Present on Arrival Any Indicators Present on Arrival: No History of DVT/PE: No History of Uncontrolled Diabetes: No Urinary Catheter: No History of Decub. Ulcer: No History Surgical Site Infection Following: None - Disposition Have Diagnosis and Disposition been Completed?: Yes Diagnosis: Chest pain Disposition: HOSPITALIZED Disposition Time: 07:01 Condition: STABLE Discharge Instructions (ExitCare): Chest Pain (ED) Referrals: Pratibha Teresa MD [Primary Care Provider] - Follow up with primary Forms: [employer] [facility] (Algerian)
[2017-11-27 06:57] LABS: HEMOGLOBIN 15.4 g/dL (14.0-18.0); MEAN CORPUSCULAR HEMOGLOBIN 27.9 pg (25.0-35.0); MEAN CORPUSCULAR HGB CONC 34.5 g/dl (31.0-37.0); RBC 5.52 10^6/uL (3.5-6.1); RED CELL DISTRIBUTION WIDTH 14.6 % (11.5-14.5); WHITE BLOOD COUNT 7.8 10^3/ul (4.5-11.0)
[2017-11-27 07:01] LABS: INR 0.93 (0.93-1.08); PROTHROMBIN TIME 10.7 SECONDS (9.4-12.5)
[2017-11-27 07:02] LABS: PARTIAL THROMBOPLASTIN TIME 30.3 Seconds (25.1-36.5)
[2017-11-27 07:09] LABS: ALB/GLOB RATIO 1.4 (1.1-1.8); ALBUMIN 4.2 g/dL (3.0-4.8); ALT/SGPT 37 U/L (7-56); AST/SGOT 27 U/L (17-59); BLOOD UREA NITROGEN 22 mg/dL (7-21); CALCIUM 9.4 mg/dL (8.4-10.5); GFR AFRICAN-AMERICAN > 60; GFR NON-AFRICAN AMERICAN > 60
[2017-11-27] MEDS ORDERED: Lidocaine 2% Inj (20ml) ONE (07:15)
[2017-11-27] MEDS ORDERED: Iodixanol 320 MG/ML 200 ML BOTTLE IV ONE (07:16)
[2017-11-27] MEDS ORDERED: Iohexol 350mgl/ml 50 ML ONE (07:16)
[2017-11-27] MEDS ORDERED: Nitroglycerin 50mg in D5W 50 MG/250 ML BOTTLE IV ONE (07:16)
[2017-11-27] MEDS ORDERED: Verapamil 2 ML ONE (07:16)
[2017-11-27 07:20] LABS: TROPONIN I < 0.01 ng/mL
[2017-11-27] MEDS ORDERED: Midazolam 2 MG/2 ML VIAL ONE (08:00)
--- NOTE | 2017-11-27 08:08 | RAD ---
Date of service: 11/27/2017 HISTORY: chest pain COMPARISON: 07/26/2017 FINDINGS: LUNGS: No active pulmonary disease. PLEURA: No significant pleural effusion identified, no pneumothorax apparent. CARDIOVASCULAR: Normal. OSSEOUS STRUCTURES: No significant abnormalities. VISUALIZED UPPER ABDOMEN: Normal. OTHER FINDINGS: None. IMPRESSION: No active disease.
[2017-11-27] MEDS ORDERED: Eptifibatide 20 mg/10mL Inj IVP ONE (08:43)
[2017-11-27] MEDS ORDERED: Iodixanol 320 MG/ML 100 ML BOTTLE IV ONE (09:13)
[2017-11-27] MEDS ORDERED: Sodium Chloride 0.9% 1,000 ML IV SCH (10:15)
--- NOTE | 2017-11-27 10:59 | CPOSTOP ---
DATE: 11/27/2017 CARDIOVASCULAR LAB POST PROCEDURE NOTE DICTATING PHYSICIAN: Pauline Joseph MD. CULTURAL HISTORIAN: Penny sugarcane research technician. TYPE OF ANESTHESIA: Moderate conscious sedation. Total 2 mg Versed, 100 of fentanyl given. Periodically started 1 mg of Versed and 50 of fentanyl. PRE-PROCEDURE DIAGNOSES: Unstable angina, acute coronary syndrome. PROCEDURE PERFORMED: 1. Left heart catheterization from left radial. 2. Intervention from right femoral, A. Stenting of circumflex. B. Angioplasty of LAD proximal for in-stent restenosis with plain balloon after using a Scorring balloon. FINDINGS: 90% proximal LAD in-stent stenosis, 80% mid circumflex stenosis, LV function 50%. POST PROCEDURE CONDITION: Stable. VASCULAR ACCESS SITE: 1. Left radial for cardiac catheterization. 2. Right femoral for intervention. CLOSURE DEVICE APPLIED: Mynx for right femoral and TR Band for left radial. TOTAL RADIATION DOSE: [id number]. FLUORO TIME: 26.6 Pauline Joseph MD MTDD
[2017-11-27] MEDS ORDERED: Insulin Reg-LOW-Coverage SC SCH (11:30)
[2017-11-27] MEDS: Insulin Reg-LOW-Coverage SC SCH ×2 (11:30→16:30)
[2017-11-27] MEDS ORDERED: Digoxin 125 mcg (0.125 mg) Tab PO SCH (14:00)
[2017-11-27 14:06] VITALS: PULSE 60
[2017-11-27 15:19] LABS: BASO # 0.02 K/mm3 (0.0-2.0); BASO % 0.1 % (0.0-3.0); EOS # 0.1 (0.0-0.7); EOS % 0.6 % (1.5-5.0); GRAN # 16.07 (1.4-6.5); GRAN % 86.9 % (50.0-68.0); HEMOGLOBIN 14.9 g/dL (14.0-18.0); LYMPH # 1.5 (1.2-3.4); LYMPH % 8.1 % (22.0-35.0); MEAN CORPUSCULAR HEMOGLOBIN 27.8 pg (25.0-35.0); MEAN CORPUSCULAR HGB CONC 34.3 g/dl (31.0-37.0); MEAN PLATELET VOLUME 9.6 fl (7.0-11.0); MONO # 0.8 (0.1-0.6); MONO % 4.3 % (1.0-6.0); RBC 5.36 10^6/uL (3.5-6.1); RED CELL DISTRIBUTION WIDTH 14.4 % (11.5-14.5); WHITE BLOOD COUNT 18.5 10^3/ul (4.5-11.0)
--- NOTE | 2017-11-27 15:52 | CARD ---
APPROVED REPORT Date of service: 11/27/2017 Procedure(s) performed: Left Heart Catheterization PTCA with Balloon Angioplasty with scorring Balloon of Proximal LAD PTCA with Stenting of Mid circumflex with QUINTIN HISTORY The patient is a 57 year-old male with a history of : previous [place] (> 7 days), most recent EF: 57%. (EF Method: RADIONUCLIDE), diabetes mellitus with insulin treatment , previous diagnostic cath, tobacco history() : The patient is a former smoker , previous PCI (The PCI date was 07/28/2017), hypertension , dyslipidemia , Multiple PTCAs and [place] after 07/28/17 PTCA with sub acute stent thrombosis in [place] and primary PTCa of LAD on 08/13/2017 admitted through ER with unstable angina/ ACS. INDICATION The indication(s) include : unstable angina . CASE TECHNIQUE The patient was brought emergently to the Cardiac Catheterization Laboratory in a fasting state and was prepped and draped in a sterile manner. The left wrist was infiltrated with 2% Lidocaine subcutaneous anesthesia. A 6FR GLIDESHEATH ACCESS KIT sheath was inserted into the left radial artery without difficulty. Coronary angiography was performed using coronary diagnostic catheters. The left coronary system was accessed and visualized with a Diagnostic ,5F JL 4 CATH DXT 100 CM catheter. The right coronary system was accessed and visualized with a Diagnostic ,5 Fr JR 4 catheter. The left ventricle was accessed and visualized with a 5 Fr Pigtail 145 (Angled) catheter. Left ventricular/Aortic Valve gradient assessed on pullback. Left ventriculogram was performed in EVANS projection. Closure device was deployed with a 6 Fr / 7 Fr MynxGrip without any complications. The patient tolerated the procedure well and there were no complications associated with the procedure. cardiac cath was done with left Radial approach but PTCa was done with RFA b/c guide catheter was unable to engage. Vessel Analysis The patient's coronary anatomy is left dominant. The left main coronary artery is a medium size vessel with diffuse calcification noted throughout this vessel and without significant stenosis. There is a 40-50% stenosis in the proximal segment. The left main bifurcates to the left anterior descending and circumflex. The left anterior descending artery is a medium size vessel with diffuse calcification noted throughout this vessel and with significant stenosis. There is a 90% stenosis in the proximal segment. Instent restenosis The first diagonal branch is a small size vessel with diffuse calcification noted throughout this vessel and without significant stenosis. The second diagonal branch is a small size vessel with diffuse calcification noted throughout this vessel and without significant stenosis. The circumflex artery is a medium size vessel with diffuse calcification noted throughout this vessel and with significant stenosis. There is a 80% stenosis in the mid segment. The first obtuse marginal branch is a small size vessel with diffuse calcification noted throughout this vessel and without significant stenosis. The second obtuse marginal branch is a small size vessel with diffuse calcification noted throughout this vessel and without significant stenosis. The third obtuse marginal branch is a small size vessel with diffuse calcification noted throughout this vessel and without significant stenosis. The left posterior descending artery is a medium size vessel with diffuse calcification noted throughout this vessel and without significant stenosis. The right coronary artery is a small size vessel with diffuse calcification noted throughout this vessel and without significant stenosis. There is a 60-70% stenosis in the mid segment. Non dominant small artery Left Ventricle The left ventricle is normakl in size with normal contractility. There was no cardiomyopathy. The left ventricular ejection fraction is estimated to be 55%. The left ventricular end diastolic pressure is 2025 mmHg. There was no gradient across the aortic valve upon pullback. PCI Technique Lesion Anticoagulation was achieved with Heparin and , Integrilin bolluses. Percutaneous coronary intervention was performed on the proximal left anterior descending artery segment. The lesion stenosis prior to intervention was 90% with GUILLERMO 2 flow. A 6 Fr XB 3 Guide Catheter was used to engage the ostium. A Luge 182 Interventional Guidewire was used to cross the lesion. BALLOON DILATION A Balloon catheter 2.5 x 15 mm Scoring Balloon PTCA was inserted and inflated up to 10.00atm for 27seconds. multiple ionflation with Scorring Balloon POST STENT DEPLOYMENT BALLOON DILATION A Balloon catheter 3.0 x 12 mm Trek RX NC was inserted and inflated up to 14.00atm for 21seconds. Final angiography reveals 0 % stenosis with GUILLERMO 3 flow. PCI Technique Lesion 2 Percutaneous Coronary Intervention was performed on the mid circumflex artery segment. The lesion stenosis prior to intervention was 80% with GUILLERMO 2 flow. A 6 Fr XB 3 Guide Catheter was used to engage the ostium. A Luge 182 Interventional Guidewire was used to cross the lesion. STENT DEPLOYMENT A drug-eluting stent STENT RESOLUTE TEDDY 2.75 X12 was inserted and inflated up to 12.00atm for 20seconds. Final angiography reveals 0 % stenosis with GUILLERMO 3 flow. Conclusion instent 90% restenosis in proximal LAD. Mid Cx has 80% stenosis. Non dominant RCA 60-70%, unchanged from before. Preserved Lv Fx. EF- 55%, EDP-20-25 mmof hg. Successful PTCA with Scorring Balloon and POBA of Proximal LAD Successful PTCA with Quintin of Mid Cx Recommendations Cardiac Rehabilitation Referral Aggressive Medical TherapyCardiac Risk Reduction Program Continue ASA and Brilanta Mandatory for one year preferably for a longer duration. Periodic stress test with myoview to monitor progression of CAD and Instent restenosis. If restenosis occurs, would consider CABG as left main has also 40-50% stenosis. CC; Drs. Teresa / leon.
[2017-11-27 17:02] LABS: BLOOD UREA NITROGEN 19 mg/dL (7-21); GFR AFRICAN-AMERICAN > 60; GFR NON-AFRICAN AMERICAN > 60
[2017-11-27 17:42] VITALS: BP 131/96; PULSE 92; RESP 21; TEMP 97.1
--- NOTE | 2017-11-27 19:36 | CARD ---
APPROVED REPORT Date of service: 11/27/2017 EKG Measurement Heart [id number] <Conclusion> Normal sinus rhythm Incomplete right bundle branch block Borderline ECG
--- NOTE | 2017-11-27 19:51 | CARD ---
APPROVED REPORT Date of service: 11/27/2017 EKG Measurement Heart [id number] <Conclusion> Normal sinus rhythm Incomplete right bundle branch block Cannot rule out Anterior infarct, age undetermined Abnormal ECG
--- NOTE | 2017-11-28 07:39 | HP ---
REASON FOR ADMISSION: The patient came to the ER with acute coronary syndrome, unstable angina. BRIEF CLINICAL HISTORY: This is a 57-year-old male with multiple PTCA, diabetes, hypertension, hyperlipidemia, history of recently subacute stent thrombosis in [place], status post PTCA on 08/12/2017, in [place] for subacute stent thrombosis, who was in rehab day before yesterday. Came with the complaint of fullness in the chest and chest pain. The patient was seen yesterday in the office, complaining of some chest pressure. Told that we will schedule cardiac catheterization, but chest pain come to the Emergency Room. The patient came to the Emergency Room because last night he had chest pressure again and fullness and pressure that has been there before, so came to the Emergency Room. The patient was seen and evaluated and advised cardiac catheterization, add on for cardiac catheterization. PAST MEDICAL HISTORY: Significant for unstable angina; coronary artery disease, status post multiple stents; diabetes; hypertension; and hyperlipidemia. PREVIOUS CARDIAC WORKUP: The patient had multiple stents, first stent on 11/05/2012, then 06/26/2013, and most recently 08/02/2017, mid and proximal LAD stent was done. Then, the patient went to [place] where the patient had subacute stent thrombosis, massive TN, and status post PTCA of LAD with a drug-eluting stent on 08/12/2017, in [place], followed by the patient had LifeVest and then the patient while in the hospital, another episode of chest pain, so the patient had repeat cardiac catheterization on 08/18/2017, at [place] that showed patent stent. Later on, the patient had been followed up here in the [facility]. The patient had echo done that showed normal wall motion, ejection fraction 55%. MUGA scan dated 09/09/2017, LifeVest was removed. REVIEW OF SYSTEMS: As per HPI. PHYSICAL EXAMINATION: GENERAL: Height of the patient 5 feet body mass index kg/m2. VITAL SIGNS: Temperature afebrile, heart rate , and blood pressure 130/71. HEENT: PERRLA. Extraocular muscles intact. NECK: Supple. No carotid bruit. No thyromegaly. CHEST: Clear to auscultation. HEART: S1 and S2, regular. ABDOMEN: Soft. EXTREMITIES: Clubbing and cyanosis negative. LABORATORY DATA: Blood workup as follows: WBC 7.8, hemoglobin 15.5, hematocrit 44.7, platelet count 206. Chemistry shows sodium 140, potassium 4.4, chloride 104, carbon dioxide 25, anion gap of 15. BUN 22, creatinine 1.1. Troponin 0.01, negative. EKG shows normal sinus rhythm. No acute ST-T changes noted. IMPRESSION: Acute coronary syndrome, unstable angina, history of multiple stents as mentioned started on 11/05/2012, then 06/26/2013, and then proximal left anterior descending on 08/02/2017, at [facility] as well as the mid left anterior descending. Later on, the patient had subacute stent thrombosis in [place] dated 08/12/2017, with proximal left anterior descending was stented. Ejection fraction severely decreased, has massive myocardial infarction, remained for LifeVest for a while and then later on, left ventricular function improved. The LifeVest was removed on 10/09/2017. Admitted with acute coronary syndrome. Further recommendations will be made after the cardiac catheterization. We will give aspirin and Plavix. The patient took aspirin and Brilinta, so we will continue cardiac catheterization. Current medications, the patient is taking at home, atorvastatin 80 mg daily, insulin 40 mg daily, digoxin, Singulair, aspirin. NO KNOWN DRUG ALLERGY. Further recommendations after the cardiac catheterization. We will follow with you. Thank you, Dr. Teresa, for providing us the opportunity in taking care of the patient, Teodoro Russo. Pauline Joseph MD
== END 2017-11-27 21:31 | disposition home or self-care (01) ==
LOC: ED 06:10 → CATH 10:05 → 2RSO 10:07 → CATH 21:31
PROVIDERS: ATTEND Internal Medicine Cardiovascular Disease
DX: I25.110 Atherosclerotic heart disease of native coronary artery with unstable angina pectoris (principal); T82.855A Stenosis of coronary artery stent, initial encounter; E11.9 Type 2 diabetes mellitus without complications; I10 Essential (primary) hypertension; E78.5 Hyperlipidemia, unspecified; I25.2 Old myocardial infarction; Y83.8 Other surgical procedures as the cause of abnormal reaction of the patient, or of later complication, without mention of misadventure at the time of the procedure; Z79.02 Long term (current) use of antithrombotics/antiplatelets; Z79.4 Long term (current) use of insulin; Z79.82 Long term (current) use of aspirin; Z87.891 Personal history of nicotine dependence
CPT/HCPCS: 71045; 80053; 80162; 82550; 82948; 83615; 84484; 85025; 85027; 85175; 85610; 85730; 92920; 93005; 93458; 96374; 96376; 99152; 99283; C1725 ×2; C1760; C1769 ×2; C1874; C1887 ×4; C2629; C9600; J1327; J1644 ×2; J1940; J2250; J3010; J7030; Q9966; Q9967 ×2

== ENCOUNTER 2018-01-26 09:31 | Day surgery (SDC) | payer MEDICARE ==
[2018-01-13 20:12] VITALS: BMI 22.9
[2018-01-15 14:03] VITALS: PULSE 82
[2018-01-26 10:20] VITALS: O2SAT 98
[2018-01-26 10:21] LABS: BASO # 0.01 K/mm3 (0.0-2.0); BASO % 0.1 % (0.0-3.0); EOS # 0.4 (0.0-0.7); GRAN # 5.79 (1.4-6.5); GRAN % 68.4 % (50.0-68.0); HEMOGLOBIN 16.2 g/dL (14.0-18.0); LYMPH # 1.8 (1.2-3.4); LYMPH % 20.7 % (22.0-35.0); MEAN CELL VOLUME 82.4 fl (80.0-105.0); MEAN PLATELET VOLUME 9.4 fl (7.0-11.0); MONO # 0.5 (0.1-0.6); MONO % 5.8 % (1.0-6.0); RBC 5.79 10^6/uL (3.5-6.1); RED CELL DISTRIBUTION WIDTH 14.8 % (11.5-14.5); WHITE BLOOD COUNT 8.5 10^3/ul (4.5-11.0)
[2018-01-26 10:30] LABS: INR 0.97; PARTIAL THROMBOPLASTIN TIME 31.1 Seconds (25.1-36.5); PROTHROMBIN TIME 11.2 SECONDS (9.4-12.5)
[2018-01-26 10:37] LABS: BLOOD UREA NITROGEN 20 mg/dL (7-21); CALCIUM 9.9 mg/dL (8.4-10.5); GFR NON-AFRICAN AMERICAN > 60; HDL CHOLESTEROL 43 mg/dL (29-60)
[2018-01-26 10:46] LABS: LDL CHOLESTEROL 97 mg/dL (0-129)
--- NOTE | 2018-01-26 10:51 | HP ---
REASON FOR ADMISSION: Left heart cath, possible angioplasty, abnormal stress test. BRIEF CLINICAL HISTORY: This is a 57-year-old male with past medical history of multiple PTCAs who had recently a stress test dated 01/15/2018 that shows apical reversible ischemia, partially reversible, ejection fraction 63%. The patient admitted for elective cardiac cath, possible angioplasty. The patient was recently admitted on 01/15/2018 with acute bronchitis. In view of multiple STEMI, non-STEMI, the patient underwent a stress test that shows abnormal, so the patient is scheduled for elective cardiac cath and possible angioplasty. The patient is also complaining of pressure in the chest and recurrent angina (new onset of unstable angina). PAST MEDICAL HISTORY: Significant for unstable angina, code STEMI, status post multiple subacute stent, thrombosis, diabetes, hypertension, hyperlipidemia. PREVIOUS CARDIAC WORKUP: As follows: The patient had a stress test dated 01/15/2018 when the patient admitted with acute bronchitis and chest pain. Stress test shows abnormal reversible ischemia, ejection fraction 63% dated 01/15/2018. Most recently, the patient had a cardiac catheterization, stenting of balloon angioplasty for in-stent restenosis of LAD with scoring balloon on 11/27/2017 of proximal LAD and stenting of mid circumflex drug-eluting stent on 11/27/2017 done. That time, cardiac catheterization in conclusion revealed 90% in-stent restenosis of proximal LAD, mid circumflex 80% stenosis, non-dominant RCA 60% to 70% stenosis, unchanged from before, preserved LV function, ejection fraction 55%, EDP was ranging 20-25, status post PTCA with scoring balloon and POBA of proximal LAD was done, status post PTCA with drug-eluting stent of the mid circumflex was done and the patient was treated medically with ejection fraction at that time found to be 50% EDP was ranging 20%-25%. Recommendation at that time made if the patient developed recurrent in-stent restenosis, consider one-vessel bypass because of recurrent restenosis. PTCA started 11/06/2012, then 06/26/2013 and then again repeat 08/02/2017 of LAD was done. Then, the patient visited to the daughter in [place] where the patient had subacute stent thrombosis of LAD with massive anterior wall ME, subsequent decreased LV function and the patient had discharge after PTCA in [place] with LifeVest. Later on, the ejection fraction subsequently improved and the patient's LifeVest was discontinued. Most recently, the patient had a cardiac catheterization and stenting as mentioned for in-stent restenosis of LAD and PTCA of circumflex as above on 11/27/2017. Most recently, echocardiography on 01/14/2018 revealed left ventricular size normal, borderline hypertrophy, ejection fraction 55%, trace MR, trace TR, trace AR, trace PI, in addition to the patient's diabetes, hypertension, and hyperlipidemia. REVIEW OF SYSTEMS: As per HPI. SOCIAL HISTORY: Denies any smoking. Denies any history of alcohol abuse. CURRENT MEDICATIONS: The patient is taking at home, Brilinta 90 mg twice a day, baby aspirin 81 mg daily, atorvastatin 80 mg daily, Cymbalta 30 mg daily, digoxin that is Digitek, insulin, isosorbide, losartan, nitroglycerin. PHYSICAL EXAMINATION VITAL SIGNS: As follows: Height of the patient is 5 feet 4 inches, weight of the patient 160 pounds, body mass index 29 kg/sq m. Rest of the examination as follows: Temperature afebrile, heart rate 60, blood pressure 110/80. HEENT: PERRLA. Extraocular muscles intact. NECK: Supple. No carotid bruits or thyromegaly. CHEST: Clear to auscultation. HEART: S1 and S2, regular. ABDOMEN: Soft. EXTREMITIES: Clubbing and cyanosis, negative. LABORATORY DATA: Blood workup pending. On last admission, the blood shows WBC 8.5, hemoglobin 14.4, hematocrit 42.3, platelets of 190 dated 01/15/2018. Chemistry shows 01/15/2018, sodium 140, potassium 4.2, chloride 105, carbon dioxide 25, anion gap of 18, BUN 18, creatinine 0.9. EKG shows sinus rhythm with APCs, incomplete right bundle-branch block. IMPRESSION AND PLAN: A 57-year-old male with past medical history of diabetes, hypertension, hyperlipidemia, history of leukemia, being followed by [facility], history of coronary artery disease, very extensive started 11/06/2012, then 06/26/2013 and the most recently left anterior descending 08/02/2017. Then, the patient went to [place] where the patient had subacute stent thrombosis on 08/13/2017, subsequently massive anterior wall myocardial infarction and primary angioplasty was done. The patient was sent on LifeVest. The patient was readmitted here with unstable angina and repeat percutaneous transluminal coronary angioplasty was done for in-stent restenosis of left anterior descending on 11/27/2017 and drug-eluting stent in circumflex. Recently, the patient admitted on 01/15/2018 with acute bronchitis symptom and pressure of the chest. The patient underwent a stress test that shows partial reversible anterior defect dated 01/15/2018, ejection fraction 63%. So, the patient is scheduled for elective cardiac cath and possible angioplasty. Further recommendations after cardiac catheterization. Risks,benefits, and alternatives were discussed with the patient. The patient's family agreed. We will proceed for cardiac catheterization. Pauline Joseph MD
--- NOTE | 2018-01-26 12:42 | CARD ---
APPROVED REPORT Date of service: 01/26/2018 EKG Measurement Heart [id number] <Conclusion> Normal sinus rhythm rSr Pattern in V1. Poor R Progression V1-V3.
[2018-01-26] MEDS ORDERED: Iodixanol 320 MG/ML 200 ML BOTTLE IV ONE (14:03)
[2018-01-26] MEDS ORDERED: Nitroglycerin 50mg in D5W 0 MG/0 ML BOTTLE IV ONE (14:03)
[2018-01-26] MEDS ORDERED: Iodixanol 320 MG/ML 100 ML BOTTLE IV ONE (14:03)
[2018-01-26] MEDS ORDERED: Iohexol 350mgl/ml 50 ML ONE (14:03)
[2018-01-26] MEDS ORDERED: Midazolam 2 MG/2 ML VIAL ONE (14:27)
[2018-01-26] MEDS ORDERED: Sodium Chloride 0.9% 1,000 ML IV SCH (15:45)
--- NOTE | 2018-01-26 15:57 | CPOSTOP ---
DATE: 01/26/2018 CARDIOVASCULAR LAB POST PROCEDURE NOTE DICTATING PHYSICIAN: Pauline Joseph MD. DANCE HISTORIAN: Joe geotechnical field technician. TYPE OF ANESTHESIA: Moderate conscious sedation, total of 1 mg of Versed, 50 of fentanyl given. PRE-PROCEDURE DIAGNOSES: Unstable angina, history of multiple stent, history of [id number] myocardial infarction in the past. PROCEDURE PERFORMED: 1. Left heart catheterization. 2. Intravascular ultrasound, left main. 3. Intravascular ultrasound of left anterior descending. FINDINGS: Mild in-stent restenosis of LAD, moderate disease in left main. FINAL DIAGNOSIS: Patent previous stent. POST PROCEDURE PATIENT CONDITION: Stable. VASCULAR ACCESS SITE: Right femoral groin. CLOSURE DEVICE: Mynx. TOTAL RADIATION DOSE: 3940.8 milligray unit. TOTAL FLUORO TIME: 4.8 minutes. Pauline Joseph MD
--- NOTE | 2018-01-26 17:45 | CARD ---
APPROVED REPORT Date of service: 01/26/2018 Procedure(s) performed: Left Heart Catheterization IVUS of left main....6.9cm2 IVUS of proximal LAD ....4.2 cm2 HISTORY The patient is a 57 year-old male with a history of : previous [place] (> 7 days), most recent EF: 63%. (EF Method: RADIONUCLIDE), diabetes mellitus with insulin treatment , previous diagnostic cath, tobacco history() : The patient is a former smoker , previous PCI (The PCI date was 11/27/2017), hypertension , dyslipidemia , Admitted recently with SOB, chest pain acute bronchitis underwenrt stress test Suspicious for anterolateral ischemia. INDICATION The indication(s) include : positive stress test. CASE TECHNIQUE The patient was brought electively to the Cardiac Catheterization Laboratory in a fasting state and was prepped and draped in a sterile manner. The right femoral groin was infiltrated with 2% Lidocaine subcutaneous anesthesia. A 6 Fr x 11 cm Ximena sheath was inserted into the right femoral artery without difficulty. Coronary angiography was performed using coronary diagnostic catheters. The left coronary system was accessed and visualized with a Diagnostic , 6F JL4 CATH DXT 100 CM catheter. The right coronary system was accessed and visualized with a Diagnostic ,6F JR 4 CATH DXT 100 CM catheter. The left ventricle was accessed and visualized with a 6F JR 4 CATH DXT 100 CM catheter. Left ventricular/Aortic Valve gradient assessed on pullback. Left ventriculogram was performed in EVANS projection. Closure device was deployed with a 6 Fr / 7 Fr MynxGrip without any complications. The patient tolerated the procedure well and there were no complications associated with the procedure. Vessel Analysis The patient's coronary anatomy is left dominant. The left main coronary artery is a medium size vessel with diffuse calcification noted throughout this vessel and without significant stenosis. There is a 40-50% stenosis in the proximal segment. The left main bifurcates to the left anterior descending and circumflex. The left anterior descending artery is a medium size vessel with diffuse calcification noted throughout this vessel and without significant stenosis. Multiple Stent noted with mild instent restenosis noted There is a 30-40% stenosis in the proximal segment. instent restenosis The first diagonal branch is a small size vessel with diffuse calcification noted throughout this vessel and without significant stenosis. The second diagonal branch is a small size vessel with diffuse calcification noted throughout this vessel and without significant stenosis. The circumflex artery is a medium size vessel with diffuse calcification noted throughout this vessel and without significant stenosis. patent stent noted in mid segment The first obtuse marginal branch is a small size vessel with diffuse calcification noted throughout this vessel and without significant stenosis. The second obtuse marginal branch is a small size vessel with diffuse calcification noted throughout this vessel and without significant stenosis. The third obtuse marginal branch is a small size vessel with diffuse calcification noted throughout this vessel and without significant stenosis. The left posterior descending artery is a medium size vessel with diffuse calcification noted throughout this vessel and without significant stenosis. The right coronary artery is a small size vessel with diffuse calcification noted throughout this vessel and without significant stenosis. There is a 60-70% stenosis in the mid segment. non dominant small arery Left Ventricle The left ventricle is borderline in size with normal contractility. There was no cardiomyopathy. The left ventricular ejection fraction is estimated to be 55%. The left ventricular end diastolic pressure is 18 mmHg. There was no gradient across the aortic valve upon pullback. IVUS Anticoagulation was achieved with Heparin. Intravascular Ultrasound was performed on the left main coronary artery and proximal left anterior descending artery segment vessel. A 6 Fr XB 3 Guide Catheter was used to engage the left main ostium. A White [place]ps 182 Interventional Guidewire was used. A IVUS catheter was used. FINDINGS Proximal LAD $.2 Cm2 area Left main 6.9 cm2 area Conclusion patent previous PTCA Sites in LAD, and Cx Moderate Diz in laft Main Area 6.9 cm2 by IVUS9 Angiographiocally Left main unchanged from 11/27/2017) Mild to Moiderate instent restenosis in proximal LAD 4.2 CM2 area by IVUS preserVed LV FX, EF-55%, , EDP-18 mmof Hg Recommendations Aggressive Medical Therapy Continue ASA and brilanta for one year in addition to base line meds F/u Stress test in one year to monitor progression of CAD and monitor patency of Multiple stents. Cc; Drs. Teresa/ leon.
[2018-01-26 19:54] VITALS: RESP 18
[2018-01-26 22:10] VITALS: BP 118/61; PULSE 69; TEMP 97.8
== END 2018-01-26 21:40 | disposition home or self-care (01) ==
LOC: CATH 09:31 → 2RSO 15:50 → CATH 21:40
PROVIDERS: ATTEND Internal Medicine Cardiovascular Disease
DX: I25.110 Atherosclerotic heart disease of native coronary artery with unstable angina pectoris (principal); T82.858A Stenosis of other vascular prosthetic devices, implants and grafts, initial encounter; I10 Essential (primary) hypertension; E11.9 Type 2 diabetes mellitus without complications; E78.5 Hyperlipidemia, unspecified; I25.2 Old myocardial infarction; J20.9 Acute bronchitis, unspecified; R94.39 Abnormal result of other cardiovascular function study; Z79.4 Long term (current) use of insulin; Z87.891 Personal history of nicotine dependence; Z95.5 Presence of coronary angioplasty implant and graft
CPT/HCPCS: 36415; 80048; 80061; 85025; 85610; 85730; 86850; 86900; 92978; 93005; 93458; 99152; 99153; C1760; C1769 ×2; C1887; C2629; J1644 ×2; J2250; J3010; J7030; Q9966

== ENCOUNTER 2018-07-31 17:49 | Inpatient (IN) | payer MEDICARE, MEDICAID ==
[2018-07-31 17:49] VITALS: BMI 22.9
--- NOTE | 2018-07-31 18:41 | ED PDOC ---
Arrival/HPI - General Chief Complaint: Cough, Cold, Congestion Time Seen by Provider: 07/31/18 17:56 Historian: Patient - History of Present Illness Narrative History of Present Illness (Text): 07/31/18 18:38 A 58 year old male, whose past medical history includes CAD, s/p 4 stents, leukemia s/p chemo - stopped in 2015, presents to the emergency department complaining of dried cough, shortness of breath, and intermittent chest pain for the past 2 months. Patient notes cough is dry and constant causing right side rib pain, chills, weakness, sputum, and shortness of breath with intermittent chest pain (however patient is unsure if chest pain is related to cough). Patient reports he has continually had cough and shortness of breath after walking 2-3 blocks for the past few months. 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 Patient denies any fever, headache, blood in sputum, change in urinary symptoms, nausea, vomit, diarrhea, or any other complaints. Monitoring And Evaluation Advisor: Dr. Joseph No PMD Time/Duration: > month (2 months) Symptom Onset: Gradual Symptom Course: Unchanged Activities at Onset: Light Context: Home Past Medical History - Provider Review Nursing Documentation Reviewed: Yes - Infectious Disease Hx of Infectious Diseases: None - Cardiac Hx Cardiac Disorders: Yes Hx Pacemaker: No - Pulmonary Hx Respiratory Disorders: No - Neurological Hx Paralysis: No - HEENT Hx HEENT Disorder: Yes (WEARS RX GLASSES) - Renal Hx Renal Disorder: No - Endocrine/Metabolic Hx Diabetes Mellitus Type 2: Yes - Hematological/Oncological Hx Blood Transfusions: No Hx Blood Transfusion Reaction: No - Integumentary Hx Dermatological Disorder: No - Musculoskeletal/Rheumatological Hx Musculoskeletal Disorders: No - Gastrointestinal Hx Gastrointestinal Disorders: No - Genitourinary/Gynecological Hx Genitourinary Disorders: No - Psychiatric Hx Emotional Abuse: No Hx Physical Abuse: No Hx Substance Use: No - Surgical History Hx Coronary Stent: Yes - Anesthesia Hx Anesthesia: Yes Hx Anesthesia Reactions: No Hx Malignant Hyperthermia: No - Suicidal Assessment Feels Threatened In Home Enviroment: No Family/Social History - Physician Review Nursing Documentation Reviewed: Yes Family/Social History: No Known Family HX Smoking Status: Never Smoked Hx Alcohol Use: No Hx Substance Use: No Hx Substance Use Treatment: No Allergies/Home Meds Allergies/Adverse Reactions: Allergies No Known Allergies Allergy (Verified 07/31/18 18:21) Home Medications: Home Meds Medication Instructions Recorded Confirmed Insulin Detemir [Levemir] 30 units SC HS 07/05/13 07/31/18 Insulin Aspart, Recombinant 10 - 12 units SC AC 07/26/17 07/31/18 [Novolog] Ergocalciferol (Vitamin D2) 50,000 unit PO QWK 11/27/17 07/31/18 [Vitamin D2] Ibuprofen [Motrin Tab] 800 mg PO Q8 PRN 11/27/17 07/31/18 Nitroglycerin [Nitrostat] 0.4 mg SL Q15MIN PRN 11/27/17 07/31/18 DULoxetine [Cymbalta] 30 mg PO DAILY 01/23/18 07/31/18 Prasugrel Hydrochloride [Effient] 5 mg PO BID 07/31/18 07/31/18 Review of Systems - Physician Review All systems were reviewed & negative as marked: Yes - Review of Systems Constitutional: Other (chills). absent: Fevers Respiratory: SOB, Cough, Sputum Cardiovascular: Chest Pain (inermittent chest pain) Gastrointestinal: Abdominal Pain (right side rib pain). absent: Diarrhea, Nausea, Vomiting Genitourinary Male: absent: Urinary Output Changes Neurological: Other (weakness). absent: Headache Physical Exam - Physical Exam Narrative Physical Exam (Text): 07/31/18 18:38 Gen: VS reviewed, alert, well developed, well nourished, nontoxic, mild distress. ENT: Post nasal drip. Eye: EOMI, PERRL. Neck: no JVD, supple, no adenopathy. CV: regular rate, regular rhythm, no rubs, no murmur, no gallops, S1, S2, pulses equal and strong. Pulm: no distress, clear to auscultation, no wheeze, no rhonchi, breath sounds equal, no rales. Abd: soft, nontender, no guarding, no rebound, no rigidity, normal bowel sounds. Ext: no edema. Skin: good color, no rash, no cyanosis. Psych: responds appropriately to questions, normal affect. Neuro: oriented x 3, CN2-12 intact grossly, motor intact, sensation intact. Vital Signs Reviewed: Yes Vital Signs Temp Pulse Resp BP Pulse Ox 07/31/18 18:07 98.4 F 94 H 20 170/95 H 97 Temperature: Afebrile Blood Pressure: Hypertensive Pulse: Tachycardic Respiratory Rate: Normal Mental Status: Positive for: Alert and Oriented X 3 Medical Decision Making ED Course and Treatment: 07/31/18 18:38 Impression: 58 year old male presenting to the emergency room complaining of cough and shortness of breath. Plan: -- EKG -- Labs -- CBC -- COAGs -- Chest X-ray -- Reassess and disposition Prior Visits: Notes and results from previous visits were reviewed. Progress Notes: 07/31/18 20:[address] teresa, patient to be admitted for recurrent intermittent chest pain, hx cad and persistent cough. consult to dr. bray and vy - EKG Interpretation EKG Interpretation (Text): 07/31/18 1854: sinus tach at 101 bpm, irbbb, no ectopy, no acute sttw abn Interpreted by ED Physician: Yes - Scribe Statement The provider has reviewed the documentation as recorded by the Scribeitan Carpenter All medical record entries made by the Scribe were at my direction and personally dictated by me. I have reviewed the chart and agree that the record accurately reflects my personal performance of the history, physical exam, medical decision making, and the department course for this patient. I have also personally directed, reviewed, and agree with the discharge instructions and disposition. Disposition/Present on Arrival - Present on Arrival Any Indicators Present on Arrival: No History of DVT/PE: No History of Uncontrolled Diabetes: No Urinary Catheter: No History of Decub. Ulcer: No History Surgical Site Infection Following: None - Disposition Have Diagnosis and Disposition been Completed?: Yes Diagnosis: Chest pain Disposition: HOSPITALIZED Disposition Time: 20:46 Patient Plan: Observation Condition: STABLE Discharge Instructions (ExitCare): Chest Pain (ED) Referrals: Pratibha Teersa MD [Primary Care Provider] - Follow up with primary Forms: Memonic (Montenegrin)
[2018-07-31 19:08] LABS: BASO # 0.02 K/mm3 (0.0-2.0); BASO % 0.3 % (0.0-3.0); EOS # 0.5 (0.0-0.7); EOS % 6.5 % (1.5-5.0); HEMOGLOBIN 14.9 g/dL (14.0-18.0); LYMPH # 2.2 (1.2-3.4); MEAN CELL VOLUME 83.5 fl (80.0-105.0); MEAN CORPUSCULAR HEMOGLOBIN 27.6 pg (25.0-35.0); MEAN CORPUSCULAR HGB CONC 33.1 g/dl (31.0-37.0); MONO # 0.8 (0.1-0.6); MONO % 9.9 % (1.0-6.0); RBC 5.39 10^6/uL (3.5-6.1); RED CELL DISTRIBUTION WIDTH 14.5 % (11.5-14.5)
[2018-07-31 19:12] LABS: INR 1.05; PARTIAL THROMBOPLASTIN TIME 30.2 Seconds (26.9-38.3); PROTHROMBIN TIME 11.7 SECONDS (9.4-12.5)
[2018-07-31 19:13] LABS: ALB/GLOB RATIO 1.3 (1.1-1.8); ALBUMIN 4.5 g/dL (3.0-4.8); ALT/SGPT 27 U/L (7-56); AST/SGOT 28 U/L (17-59); BLOOD UREA NITROGEN 18 mg/dL (7-21); CALCIUM 9.6 mg/dL (8.4-10.5); GFR NON-AFRICAN AMERICAN > 60
[2018-07-31 19:24] LABS: TROPONIN I < 0.01 ng/mL
[2018-07-31] MEDS ORDERED: Iodixanol 320 MG/ML 100 ML BOTTLE IV ONE (19:59)
--- NOTE | 2018-08-01 05:11 | CON ---
DATE: 07/31/2018 CARDIOLOGY CONSULTATION REASON FOR CONSULTATION: Recurrent chest pain. HISTORY OF PRESENT ILLNESS: The patient is a 58-year-old Mosoth[place] male who has a history of coronary artery disease, status post coronary artery stenting in the past, history of acute leukemia, treated with chemotherapy in 2016 at [facility] and currently on remission. The patient's most recent cardiac catheterization was performed in January of last year by Dr. Joseph, which revealed patent previous PTCA and stent in LAD and circumflex artery, mild to moderate in-stent restenosis in the proximal LAD with preserved systolic function, and aggressive medical therapy was recommended at that time which included aspirin and Brilinta. The patient presented because of recurrent chest pain. The patient denies any associated diaphoresis or shortness of breath. SOCIAL HISTORY: The patient is a nonsmoker. HOME MEDICATIONS: Include NovoLog insulin, Levemir, sublingual nitroglycerine p.r.n., aspirin 81 mg once a day, Lipitor 80 mg once a day, digoxin 0.125 mg daily, Cozaar 25 mg once a day, Cymbalta 80 mg once a day, Effient 5 mg twice a day. REVIEW OF SYSTEMS: No fever or chills. No nausea or vomiting. PHYSICAL EXAMINATION: GENERAL: The patient is a middle-aged male who does not appear to be in acute distress. VITAL SIGNS: Blood pressure 170/95, heart rate 94, temperature 98.4, respirations 20. HEENT: Normocephalic. CHEST: Clear. HEART: Heart sounds are regular. ABDOMEN: Soft. EXTREMITIES: No edema. LABORATORY DATA: Today's hemoglobin, hematocrit, white count, and platelet count are within normal limits. PT, PTT, and INR are within normal limits. SMA-7 is within normal limits except for glucose 222. One set of troponin is negative. Chest x-ray was unremarkable. EKG is not available in the [employer] database as of the time of dictating this consult. ASSESSMENT: 1. Chest pain, rule out myocardial infarction. 2. Rule out pulmonary infarction. 3. Hypertension, diabetes mellitus. 4. History of coronary stenting with patent stents in left anterior descending and circumflex artery and a recent cardiac catheterization in January of last year. 5. History of acute leukemia, treated with chemotherapy in 2016 in [facility]. The patient is currently in remission. RECOMMENDATIONS: Admit the patient to telemetry, monitor daily EKGs and serial cardiac enzymes. Resume the patient's home medications including aspirin 81 mg once a day, Lipitor at 80 mg once a day, Effient 5 mg twice a day, Cozaar 25 mg once a day. Obtain chest CT angio to rule out pulmonary embolism. I will review the EKG that was supposedly done in the emergency room once I locate it. Bret Fotser MD
--- NOTE | 2018-08-01 09:03 | CARD ---
APPROVED REPORT Date of service: 07/31/2018 EKG Measurement Heart [id number] <Conclusion> Sinus tachycardia with premature atrial complexes Possible Left atrial enlargement Incomplete right bundle branch block Borderline ECG
--- NOTE | 2018-08-01 10:58 | RAD ---
Date of service: 07/31/2018 HISTORY: cough, pneumonia COMPARISON: 01/13/2018. TECHNIQUE: Chest PA and lateral FINDINGS: LUNGS: No active pulmonary disease. PLEURA: No significant pleural effusion identified. No pneumothorax apparent. CARDIOVASCULAR: No aortic atherosclerotic calcification present. No radiographic findings to suggest acute or significant cardiovascular disease. OSSEOUS STRUCTURES: No significant abnormalities. VISUALIZED UPPER ABDOMEN: Normal. OTHER FINDINGS: None. IMPRESSION: No active disease. No significant interval change compared to the prior examination(s).
--- NOTE | 2018-08-01 11:19 | CT ---
Date of service: 07/31/2018 PROCEDURE: CT Chest with contrast (Pulmonary Angiogram) HISTORY: pulmonary embolism COMPARISON: 07/31/2018. Single-view chest 04/03/2015 CT thorax TECHNIQUE: Axial computed tomography images were obtained of the chest in the pulmonary arterial phase of enhancement. Coronal and sagittal reformatted images were created and reviewed. Intravenous contrast dose: 70 cc Visipaque 320. Mean Hounsfield value in the main pulmonary artery: 356.13 Radiation dose: Total exam DLP = 329.71 mGy-cm. This CT exam was performed using one or more of the following dose reduction techniques: Automated exposure control, adjustment of the mA and/or kV according to patient size, and/or use of iterative reconstruction technique. FINDINGS: PULMONARY ARTERIES: Unremarkable. No pulmonary embolism. AORTA: No acute findings. No thoracic aortic aneurysm. No atherosclerotic calcification or mural plaque present. LUNGS: Unremarkable. No nodule, mass or pulmonary consolidation. PLEURAL SPACES: Unremarkable. No effusion or pneumothorax. HEART: Unremarkable. No cardiomegaly. No significant pericardial effusion. LYMPH NODES: Small mediastinal and hilar lymph nodes identified. Similar findings identified on a prior CT of the thorax 04/03/2015. BONES, CHEST WALL: Unremarkable. No fracture or destructive lesion OTHER FINDINGS: Unremarkable. IMPRESSION: Unremarkable CT pulmonary angiogram. No pulmonary embolus. No significant interval change compared to the prior examination(s). Concordant findings (preliminary report) provided by [facility].
[2018-08-01] MEDS: Digoxin 125 mcg (0.125 mg) Tab PO SCH (11:56)
[2018-08-01] MEDS: Insulin Reg-LOW-Coverage SC SCH ×3 (11:58→21:51)
--- NOTE | 2018-08-01 18:29 | CON ---
DATE OF CONSULTATION: 08/01/2018 REFERRING PHYSICIAN: Pratibha Teresa MD REASON FOR CONSULTATION: Cough and shortness of breath. HISTORY OF PRESENT ILLNESS: This is a 58-year-old gentleman with coronary artery disease, history of coronary stent, history of leukemia, treated with chemotherapy, in remission, diabetes, history of coronary stent, comes in to ER with cough, shortness of breath, some body aches. No high fever. No nausea, no vomiting, no diarrhea. No leg pain or leg swelling. PAST MEDICAL HISTORY: As per history of present illness. FAMILY HISTORY: No significant cardiopulmonary disease reported. SOCIAL HISTORY: Nonsmoker, nondrinker. MEDICATIONS: Cymbalta 30 mg daily, digoxin 0.125 mg daily, Ecotrin 81 mg daily, Effient 5 mg twice a day, insulin coverage, Imdur ER 30 mg daily, Levemir 30 units subcu h.s., Lipitor 80 mg daily, Nitrostat p.r.n., Pepcid 40 mg h.s., Singulair 10 mg daily. ALLERGIES: NONE KNOWN. REVIEW OF SYSTEMS: Not much headache. Has some rhinitis, stuffy nose, cough, chest pressure. No nausea, no dysuria, leg pain or leg swelling. PHYSICAL EXAMINATION: GENERAL: No acute distress. VITAL SIGNS: Temp is 98, heart rate is 80, respiratory rate is 20, blood pressure 117/68, pulse ox 97% on room air. HEENT: Moist mucous membranes. Crowded airway. NECK: Supple. No JVD. Maxillary area mildly tender. LUNGS: Have scattered rhonchi. HEART: S1 and S2. ABDOMEN: Soft, nontender, no organomegaly. EXTREMITIES: No edema. NEUROLOGIC: Awake and follows simple commands. LABORATORY DATA: Hemoglobin 14.9, hematocrit 45.0, WBC 8.0, platelets 217,000. INR 1.05. PTT is 30. Sodium 137, potassium 4.4, chloride 102, bicarbonate 24, BUN 18, creatinine 1.1, glucose 208, calcium is 9.6, AST 22, ALT 27, alk phos is 72. Troponin less than 0.01. Albumin is 4.5. Digoxin less than 0.4. CAT scan of the chest is done in ER, which shows unremarkable CT angio. No pulmonary embolism. No significant interval changes compared to prior examination. Small mediastinal and hilar lymph nodes identified. Similar finding was observed in the CAT scan on 2014. IMPRESSION AND PLAN: Coronary artery disease, history of coronary stent, history of treated acute leukemia, in remission, hypertension, diabetes. Recently had sleep study, I think, positive for sleep apnea May have acute bronchitis. Agree with Dr. Teresa with the present management. The patient being evaluated by Cardiology. Pulmonary point of view, I will add prednisone 20 mg daily, Singulair 10 mg h.s., inhaled bronchodilator. Start antibiotics. Gastric and DVT prophylaxis. We will place him on CPAP at 0.7 cm 30% oxygen while sleeping. Thank you and we will follow with you. Pauline Quiles MD
--- NOTE | 2018-08-01 18:46 | PN ---
DATE: 08/01/2018 SUBJECTIVE: The patient is still experiencing occasional chest pain. PHYSICAL EXAMINATION: VITAL SIGNS: Blood pressure 117/68, heart rate 80, temperature 97.8, respirations 20. HEENT: Normocephalic. CHEST: Clear. HEART: S1 and S2 regular. ABDOMEN: Soft. EXTREMITIES: No edema. DIAGNOSTIC DATA: Official report of chest CT angio, unremarkable CT angiogram, no pulmonary embolus. ASSESSMENT: 1. Chest pain, rule out myocardial infarction. 2. History of chronic stenting in the past with patent stent in the left anterior descending artery and circumflex artery, on recent cardiac catheterization in 01/2018. 3. History of acute leukemia, treated in 2016 at [facility]. RECOMMENDATIONS: Continue current digoxin 0.125 mg daily, aspirin 81 mg once a day, Effient 5 mg twice a day, Lipitor 80 mg once a day, Imdur 30 mg once a day. Obtain repeat EKG as well as one more set of troponin. Bret Foster MD
[2018-08-01] MEDS: Budesonide 0.5 mg/2 ml Inhal Susp UD IH SCH (21:20)
[2018-08-01] MEDS: Arformoterol 15 mcg/2 ml Inh Sol IH SCH (21:20)
[2018-08-01] MEDS: Insulin Detemir 100 units/ml Vial (Levemir) SC SCH (21:54)
[2018-08-01] MEDS: Amoxicillin-Clav 875-125 mg Tab PO SCH (21:55)
--- NOTE | 2018-08-02 02:04 | HP ---
DATE OF EXAM: 08/01/2018 The patient was seen and examined at the bedside on 08/01/2018. CHIEF COMPLAINT: Cough, cold, congestion, and chest pain. HISTORY OF PRESENT ILLNESS: Mr. Teodoro Russo is a 58-year-old male with past medical history of coronary artery disease, status post cardiac stenting; leukemia, treated with chemotherapy from [place], completed in 2016, actually came in my office couple of days ago with upper respiratory tract infection, treatment was given, but not feeling very well and came to the emergency department complaining of dry cough, shortness of breath, intermittent chest pain for the past two months, comes and goes. The patient notes his cough is dry and constant causing right-sided rib pain, chills, weakness, sputum, shortness of breath with intermittent chest pain. The patient reports that he has been continuously coughing and shortness of breath after walking two blocks for the past few months. 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 Denies headache or dizziness. PAST MEDICAL HISTORY: Insulin-dependent diabetes mellitus type 2, not controlled well; coronary artery disease with cardiac stenting; history of leukemia, status post chemotherapy as above. FAMILY HISTORY: Father and mother, noncontributory. HABITS: Never smoke. No drugs. No ethanol. ALLERGIES: THE PATIENT IS NOT ALLERGIC WITH ANY MEDICATIONS. HOME MEDICATIONS: Levemir, NovoLog, vitamin B, Nitrostat, Cymbalta, and Effient. REVIEW OF SYSTEMS: The patient was seen and examined at the bedside, looking comfortable, still coughing with shortness of breath with chest pain with coughing. No headache or dizziness. No nausea, vomiting, or diarrhea. PHYSICAL EXAMINATION: VITAL SIGNS: Temperature 98.3, pulse 69, blood pressure 120/72, and respiratory rate 16. HEENT: Head; normocephalic and atraumatic. Eyes; PERRLA. Extraocular muscles intact. Conjunctivae are clear. Nose patent. Mucous membranes moist. NECK: Supple. No carotid bruits. No JVD or thyromegaly. CHEST: Bilaterally symmetrical. HEART: S1 and S2 positive. LUNGS: Positive wheezing bilaterally. ABDOMEN: Soft. Bowel sounds present. No organomegaly. EXTREMITIES: No edema. No cyanosis. NEUROLOGIC: The patient is awake and alert. Moving all four extremities. No focal deficits. LABORATORY DATA: White blood cells 8, hemoglobin 14.9, hematocrit 45, and platelets 217. Sodium 137, potassium 4.4, BUN 18, creatinine 1.1, glucose 255, and random glucose 222. Cardiac enzymes x2 is negative. Digoxin level less than 0.4, looks like the patient is not compliant. ASSESSMENT AND PLAN: Mr. Teodoro Russo is a 58-year-old male has insulin-dependent uncontrolled diabetes mellitus; history of coronary artery disease, status post cardiac stents; history of upper respiratory tract infection, history of acute leukemia and got treatment in [place]; sleep apnea syndrome, seen by the manager of business operations and Dr. Quiles, financial services specialist; Singulair, prednisone, and inhaled bronchodilators given. Gastrointestinal and deep venous thrombosis prophylaxes given. Repeat labs. We will follow up. Pratibha Teresa MD MTDD
[2018-08-02] MEDS: Insulin Reg-LOW-Coverage SC SCH ×4 (07:22→21:45)
[2018-08-02] MEDS: Budesonide 0.5 mg/2 ml Inhal Susp UD IH SCH ×2 (07:44→19:39)
[2018-08-02] MEDS: Arformoterol 15 mcg/2 ml Inh Sol IH SCH ×2 (07:44→19:39)
--- NOTE | 2018-08-02 09:03 | PN ---
DATE: 08/02/2018 PULMONARY PROGRESS NOTE REFERRING PHYSICIAN: Pratibha Teresa MD SUBJECTIVE: The patient is seen lying in bed in no acute distress. No overnight events reported. Reports using CPAP machine last night and tolerating it well. He states that he still has cough and when he coughs, he tends to get short of breath. No headache, rhinitis, chest pain, abdominal pain, nausea, vomiting, diarrhea, leg pain or leg swelling reported. PHYSICAL EXAMINATION: GENERAL: In no acute distress. VITAL SIGNS: Blood pressure 122/67, pulse 72, temperature 97.4, and oxygen saturation 100%, on CPAP. HEENT: Moist mucous membranes. Crowded airway. NECK: Supple. No JVD. CARDIOPULMONARY: S1 and S2. LUNGS: Diffuse scattered rhonchi. ABDOMEN: Soft and nontender. No distention. No organomegaly. EXTREMITIES: No bilateral lower extremity edema. NEUROLOGIC: Awake, alert and verbal. Follows commands. LABORATORY DATA: Reviewed. POC glucose 205. MEDICATIONS: Reviewed. Tylenol 650 mg every 6 hours p.r.n., Augmentin 1 tablet every 12 hours, Brovana 50 mcg every 12 hours, aspirin 81 mg daily, Lipitor 80 mg at bedtime, Pulmicort 0.5 mg every 12 hours, digoxin 0.125 mg daily, Cymbalta 30 mg daily, Pepcid 40 mg at bedtime, Levemir 30 units subcu at bedtime, Humulin R sliding scale in the morning and at bedtime, Imdur 30 mg daily, Singulair 10 mg daily, Nitrostat 0.4 mg sublingual every 15 minutes p.r.n., Effient 5 mg twice a day, prednisone 30 mg daily. ASSESSMENT AND PLAN: Coronary artery disease; history of coronary stent; history of treated acute leukemia, in remission; hypertension; diabetes; may have acute bronchitis; sleep apnea syndrome. Continue cardiology followup. Continue inhaled bronchodilators, leukotriene inhibitors, antibiotic therapy, gastric prophylaxis, deep venous thrombosis prophylaxis. Continue CPAP use at bedtime, sleep apnea precaution, head of bed elevated to 45 degrees. We will add Tessalon Perles for cough. This patient was seen and examined with Dr. Quiles. Discussed assessment and plan as described above. This patient was seen and examined with Drew Talley, nurse practitioner. Discussed assessment and plan as described above. Thank you for this consult. We will follow with you. Drew Talley APN Pauline Quiles MD
[2018-08-02] MEDS: Enoxaparin 40 mg Syringe SC SCH (09:35)
[2018-08-02] MEDS: Amoxicillin-Clav 875-125 mg Tab PO SCH ×2 (09:36→21:44)
[2018-08-02] MEDS: Digoxin 125 mcg (0.125 mg) Tab PO SCH (09:36)
[2018-08-02] MEDS: Pantoprazole 40 mg EC Tab PO SCH (21:44)
[2018-08-02] MEDS: Insulin Detemir 100 units/ml Vial (Levemir) SC SCH (21:45)
[2018-08-03 07:03] LABS: BASO # 0.01 K/mm3 (0.0-2.0); BASO % 0.1 % (0.0-3.0); EOS % 0.5 % (1.5-5.0); HEMOGLOBIN 13.8 g/dL (14.0-18.0); LYMPH # 1.9 (1.2-3.4); LYMPH % 25.5 % (22.0-35.0); MEAN CELL VOLUME 82.4 fl (80.0-105.0); MEAN CORPUSCULAR HEMOGLOBIN 27.3 pg (25.0-35.0); MEAN CORPUSCULAR HGB CONC 33.2 g/dl (31.0-37.0); MEAN PLATELET VOLUME 9.8 fl (7.0-11.0); MONO # 0.7 (0.1-0.6); MONO % 9.7 % (1.0-6.0); RBC 5.05 10^6/uL (3.5-6.1); RED CELL DISTRIBUTION WIDTH 14.2 % (11.5-14.5); WHITE BLOOD COUNT 7.6 10^3/uL (4.5-11.0)
[2018-08-03 07:18] LABS: ALB/GLOB RATIO 1.1 (1.1-1.8); ALBUMIN 3.7 g/dL (3.0-4.8); ALT/SGPT 21 U/L (7-56); AST/SGOT 20 U/L (17-59); BLOOD UREA NITROGEN 25 mg/dL (7-21); CALCIUM 9.1 mg/dL (8.4-10.5); GFR NON-AFRICAN AMERICAN > 60; HDL CHOLESTEROL 34 mg/dL (29-60)
[2018-08-03 07:24] LABS: TROPONIN I 0.02 ng/mL
[2018-08-03 07:25] LABS: LDL CHOLESTEROL 129 mg/dL (0-129)
[2018-08-03] MEDS: Budesonide 0.5 mg/2 ml Inhal Susp UD IH SCH ×2 (07:27→19:30)
[2018-08-03] MEDS: Arformoterol 15 mcg/2 ml Inh Sol IH SCH ×2 (07:27→19:30)
[2018-08-03] MEDS: Insulin Reg-LOW-Coverage SC SCH ×4 (07:59→21:34)
--- NOTE | 2018-08-03 09:21 | PN ---
DATE: 08/02/2018 SUBJECTIVE: The patient denies any chest pain or shortness of breath. PHYSICAL EXAMINATION: VITAL SIGNS: Blood pressure 123/70, heart rate 73, temperature 97.4, respirations 28. HEENT: Normocephalic. EXTREMITIES: No edema. LABORATORY DATA: Digoxin level is less than 0.4. Two sets of troponins are negative. Today's blood sugars are 205 and 229 respectively. Repeat 12-lead EKG was ordered but is not available yet on the [employer] database. ASSESSMENT: 1. Chest pain, myocardial infarction is ruled out. 2. Uncontrolled diabetes mellitus. 3. Hypertension. 4. History of coronary artery disease, status post left anterior descending and circumflex artery stenting with recent catheterization revealing patent stent in 01/2018. 5. History of leukemia, treated in 2016 with chemotherapy. RECOMMENDATIONS: Continue current digoxin at 0.125 mg daily, Augmentin one tablet every 12 hours, Effient 5 mg twice a day, aspirin 81 mg once a day, Lipitor 80 mg once a day, subcutaneous Lovenox 40 mg daily. I will follow repeat EKG that was ordered yesterday. Bret Foster MD
--- NOTE | 2018-08-03 09:30 | PN ---
DATE: 08/02/2018 SUBJECTIVE: The patient was seen and examined at the bedside on 08/02/2018. The patient's chest pain is better, cough is better, even he is still coughing and having musculoskeletal pain due to cough, especially chest and abdomen. No fever. No chills. No headache. No dizziness. No nausea, vomiting or diarrhea. PHYSICAL EXAMINATION: VITAL SIGNS: Blood pressure 120/60, pulse 70, temperature 97.4, oxygen saturation 100% on CPAP. HEENT: Head: Normocephalic and atraumatic. Eyes: PERRLA. Extraocular muscles intact. Conjunctivae clear. Nose patent. Mucous membranes moist. NECK: Supple. No carotid bruits. No JVD. No thyromegaly. CHEST: Bilaterally symmetrical. HEART: S1 and S2 positive. LUNGS: Clear to auscultation. ABDOMEN: Soft. Bowel sounds present. No organomegaly. EXTREMITIES: No edema. No cyanosis. NEUROLOGIC: The patient is awake, alert, moving all four extremities. No focal deficit. LABORATORY DATA: We do not have recent labs today. I reviewed the old labs. Glucose random is 205. MEDICATIONS: Tylenol, Augmentin, Brovana, aspirin, Lipitor, Pulmicort, digoxin, Cymbalta, Pepcid, Levemir insulin, Imdur, Singulair, Nitrostat, Effient. ASSESSMENT AND PLAN: The patient is a 58-year-old male with insulin-dependent diabetes mellitus type 2, not controlled; coronary artery disease, history of coronary stenting by Dr. Joseph; history of acute leukemia, treated in [place], in remission; hypertension. Has acute bronchitis and sleep apnea syndrome. Continue bronchodilators. Meteorology Professor and lead cargo mover are on the case. Gastrointestinal and deep venous thrombosis prophylaxis. Continue continuous positive airway pressure use at bedtime. Sleep apnea precautions. Repeat labs. We will follow up. Pratibha Teresa MD MTDD
[2018-08-03] MEDS: Amoxicillin-Clav 875-125 mg Tab PO SCH ×2 (09:36→21:29)
[2018-08-03] MEDS: Digoxin 125 mcg (0.125 mg) Tab PO SCH (09:37)
[2018-08-03] MEDS: Enoxaparin 40 mg Syringe SC SCH (09:42)
[2018-08-03 09:44] VITALS: PULSE 79
--- NOTE | 2018-08-03 12:31 | CP.PCM.PCO ---
Physician Communication Note - Physician Communication Note Physician Communication Note: possible cardiac cath significant CAD with h/o restenosis
--- NOTE | 2018-08-03 14:33 | PN ---
DATE: 08/03/2018 REASON FOR CONSULTATION AND FOLLOWUP: Shortness of breath, history of coronary artery disease, admitted with possible acute bronchitis, rule out myocardial infarction. SUBJECTIVE: The patient denies any chest pain, complaining of mild shortness of breath. OBJECTIVE: GENERAL: Not in apparent distress, lying flat in the bed. VITAL SIGNS: Temperature afebrile, heart rate 73, blood pressure 136/75. HEENT: PERRLA. Extraocular muscles intact. NECK: Supple. No carotid bruits or thyromegaly. CHEST: Clear to auscultation. HEART: S1 and S2 regular. ABDOMEN: Soft. EXTREMITIES: Clubbing and cyanosis negative. LABORATORY DATA: WBC 7.6, hemoglobin 13, hematocrit 41.6, platelet count 200. Chemistry shows sodium 140, potassium 3.9, chloride 104, carbon dioxide 29, anion gap of 12, BUN 25, creatinine 0.9. Troponin remains 0.01, 0.01 and 0.2. IMPRESSION: A 58-year-old male with past medical history of coronary artery disease, status post multiple stents, last catheterization on January with intravascular ultrasound of left main and left anterior descending coronary artery, significant complaining of some heaviness in chest and then very short of breath, brought with ambulance, mild to moderate intent stenosis, left main and left anterior descending coronary artery noted. So far, no evidence of acute myocardial infarction. The patient is being treated for acute bronchitis. The patient was on Brilinta. The patient was found to be resistant to Plavix, so the patient was switch to Brilinta, recently changed to Effient. We will discussed with the patient, if the patient agrees, we will proceed for cardiac catheterization. Right now, the patient has mild SOB the patient's acute bronchitis symptoms resolves and gets less SOB then consider cardiac catheterization while the patient is here or as an outpatient. We will discuss with the family and if the patient himself willing for cardiac catheterization, we will discussed with you. In interim continue digoxin, continue aspirin, continue isosorbide nitrate, continue insulin. The patient was on Dig, but ejection fractions has improve, so we will consider discontinuing digoxin if remained stable. We will follow with you. Thank you, Dr. Teresa, for providing us the opportunity in taking care of patient, Karan Valerio. Addendum: discussed again with pt Ref; Cath for am pt agreeable for cath B/c of recurent angina , will tuan for cath in am. and inform family. Pauline Joseph MD [facility]
--- NOTE | 2018-08-03 18:43 | PN ---
DATE: 08/03/2018 SUBJECTIVE: The patient was seen and examined on 08/03/2018. was sitting at the bedside. Still coughing, sometime shortness of breath, sometime chest pain. No fever. No chills. No hematuria. No hematochezia. No headaches. No dizziness. No sinus problem. No urinary problem. PHYSICAL EXAMINATION VITAL SIGNS: Temperature 98.6, pulse is 73, blood pressure 130/70, respiratory rate 20. HEENT: Head: Normocephalic, atraumatic. Eyes: PERRLA. Extraocular muscles intact. Conjunctivae clear. Nose patent. Mucous membrane moist. NECK: Supple. No carotid bruits. No JVD or thyromegaly. CHEST: Bilaterally symmetrical. HEART: S1 and S2 positive. LUNGS: Clear to auscultation. ABDOMEN: Soft. Bowel sounds present. No organomegaly. EXTREMITIES: No edema. No cyanosis. NEUROLOGIC: The patient is awake, alert, moving all four extremities. No focal deficits. LABORATORY DATA: White blood cells 7.6, hemoglobin 13.0, hematocrit 41.2, platelets 200. Sodium 140, potassium 3.9, BUN 25, creatinine 0.9, troponin 0.01 and PT is 0.2. MEDICATIONS: Augmentin, Brovana, Cymbalta, digoxin, Ecotrin, Effient, insulin, Imdur, Levemir, Lipitor, Pepcid, prednisone, Protonix, Pulmicort, and Tylenol. ASSESSMENT AND PLAN: Mr. Karan Valerio is a 58-year-old male with past medical history of coronary artery disease, status post multiple stents, last catheterization in January with intravenous ultrasound of the left main anterior descending coronary artery, significant complaining of chest pain, heaviness, shortness of breath. So far, no evidence of acute myocardial infarction as per Cardiology, getting antibiotics, tapering dose of steroids. The patient was found to be distant to Plavix, so the patient was switched to Brilinta, recently changed to Effient as per Cardiology. Cardiology is planning for catheterization. Acute bronchitis , getting better. Continue digoxin, isosorbide. Currently, discontinue the digoxin if remains stable. Repeat labs. We will followup. Pratibha Treesa MD [facility] # [id number] [facility]
[2018-08-03] MEDS: Pantoprazole 40 mg EC Tab PO SCH (21:29)
[2018-08-03] MEDS: Insulin Detemir 100 units/ml Vial (Levemir) SC SCH (21:38)
[2018-08-04 06:37] VITALS: O2SAT 100
[2018-08-04] MEDS ORDERED: Lidocaine PF 2% (5 ml) Inj (For Cardiac Arrhy) ONE (07:02)
[2018-08-04] MEDS ORDERED: Iohexol 350mgl/ml 50 ML ONE (07:03)
[2018-08-04] MEDS ORDERED: Iohexol 350 MG/100 ML VIAL ONE (07:03)
[2018-08-04] MEDS ORDERED: Nitroglycerin 50mg in D5W 0 MG/0 ML BOTTLE IV ONE (07:05)
[2018-08-04] MEDS ORDERED: Phenylephrine 10 mg/ml Inj ONE (07:06)
[2018-08-04] MEDS ORDERED: Iodixanol 320 MG/ML 200 ML BOTTLE IV ONE (07:37)
[2018-08-04] MEDS ORDERED: Midazolam 2 MG/2 ML VIAL ONE (07:43)
--- NOTE | 2018-08-04 07:45 | CP.PCM.PN ---
Subjective - Date & Time of Evaluation Date of Evaluation: 08/04/18 Time of Evaluation: 06:10 - Subjective Subjective: Awake. alert, no distress, denies chest pain Reason for consultation and follow up: Cardiac evaluation of shortness of breath, history of coronary artery disease, admitted for possible acute bronchitis Seen and examined by me and Dr. Joseph Objective - Vital Signs/Intake and Output Vital Signs (last 24 hours): Temp Pulse Resp BP Pulse Ox 98.0 F 71 20 152/78 H 100 08/04/18 06:00 08/04/18 06:00 08/04/18 06:00 08/04/18 06:00 08/04/18 06:00 Intake and Output: 08/04/18 08/04/18 06:59 18:59 Intake Total 0 Balance 0 - Medications Medications: Current Medications Acetaminophen (Tylenol 325mg Tab) 650 mg PO Q6H PRN PRN Reason: Headache Last Admin: 08/02/18 21:44 Dose: 650 mg Amoxicillin/Clavulanate Potassium (Augmentin 875 Mg-125 Mg Tab) 1 tab PO Q12 [facility]; Protocol Last Admin: 08/03/18 21:29 Dose: 1 tab Arformoterol Tartrate (Brovana) 15 mcg IH [id number] [facility] Last Admin: 08/03/18 19:30 Dose: 15 mcg Aspirin (Ecotrin) 81 mg PO DAILY [facility] Last Admin: 08/04/18 07:03 Dose: 81 mg Atorvastatin Calcium (Lipitor) 80 mg PO HS [facility] Last Admin: 08/03/18 21:28 Dose: 80 mg Benzonatate (Tessalon Perles) 100 mg PO TID [facility] Last Admin: 08/03/18 17:40 Dose: 100 mg Budesonide (Pulmicort Respules) 0.5 mg IH [id number] [facility] Last Admin: 08/03/18 19:30 Dose: 0.5 mg Digoxin (Digoxin) 0.125 mg PO DAILY [facility] Last Admin: 08/03/18 09:37 Dose: 0.125 mg Duloxetine HCl (Cymbalta) 30 mg PO DAILY [facility] Last Admin: 08/03/18 09:37 Dose: 30 mg Enoxaparin Sodium (Lovenox) 40 mg SC DAILY [facility]; Protocol Last Admin: 08/03/18 09:42 Dose: 40 mg Famotidine (Pepcid) 40 mg PO HS [facility] Last Admin: 08/03/18 21:29 Dose: 40 mg Insulin Detemir (Levemir) 30 unit SC [facility] Last Admin: 08/03/18 21:38 Dose: 30 units Insulin Human Regular (Humulin R Low) 0 units SC [facility]; Protocol Last Admin: 08/03/18 21:34 Dose: Not Given Isosorbide Mononitrate (Imdur Er) 30 mg PO DAILY [facility] Last Admin: 08/03/18 09:37 Dose: 30 mg Montelukast Sodium (Singulair) 10 mg PO DAILY [facility] Last Admin: 08/03/18 09:42 Dose: 10 mg Nitroglycerin (Nitrostat Sl Tab) 0.4 mg SL Q15MIN PRN PRN Reason: Chest Pain Pantoprazole Sodium (Protonix Ec Tab) 40 mg PO [facility] Last Admin: 08/03/18 21:29 Dose: 40 mg Prasugrel (Effient) 5 mg PO BID [facility] Last Admin: 08/04/18 07:02 Dose: 5 mg Prednisone (Prednisone Tab) 30 mg PO DAILY [facility] Last Admin: 08/03/18 09:37 Dose: 30 mg - Labs Labs: 08/03/18 06:10 08/03/18 06:10 PT 11.7 SECONDS (9.4-12.5) 07/31/18 18:50 INR 1.05 07/31/18 18:50 APTT 30.2 Seconds (26.9-38.3) 07/31/18 18:50 - Constitutional Appears: Non-toxic, No Acute Distress - Head Exam Head Exam: NORMAL INSPECTION, NORMOCEPHALIC - Eye Exam Eye Exam: Normal appearance Pupil Exam: NORMAL ACCOMODATION - ENT Exam ENT Exam: Mucous Membranes Moist, Normal Exam - Neck Exam Neck Exam: Full ROM, Normal Inspection - Respiratory Exam Respiratory Exam: Decreased Breath Sounds, Clear to Ausculation Bilateral, NORMAL BREATHING PATTERN - Cardiovascular Exam Cardiovascular Exam: REGULAR RHYTHM, +S1, +S2 Additional comments: Telemetry NSR 60's - GI/Abdominal Exam GI & Abdominal Exam: Soft, Normal Bowel Sounds - Extremities Exam Extremities Exam: Full ROM, Normal Capillary Refill - Neurological Exam Neurological Exam: Alert, Awake, Oriented x3 - Psychiatric Exam Psychiatric exam: Normal Affect, Normal Mood - Skin Skin Exam: Dry, Normal Color, Warm Assessment and Plan - Assessment and Plan (Free Text) Assessment: A 58 year old male who came in to the ER due to complaining of dried cough, shortness of breath, and intermittent chest pain for the past 2 months. History of coronary artery disease post stents,diabetes, leukemia post chemotherapy (2015).He was seen in the office with complaints of coughing after starting Brillinta. Brillinta was discontinued and replaced with Effient. Patient is resistant to Plavix. Admitted for bronchitis. No evidence of acute myocardial infarction. Last cardiac catheterization was on 01/26/2018 and showed patent previous PTCA sites of LAD and circumflex, moderate disease in left main unchanged from 11/27/17. Mild to moderate instent restenosis of proximal LAD LVEF 55% In view of chest pain/chest discomfort for the past 2 months recommended cardiac catheterization and patient agreed. For cardiac catheterization today. Dr. Joseph explained risk and benefits of procedure. Plan: Denies chest pain For cardiac cath today Heart rate controlled Blood pressure controlled On ASA 81 mg daily, Lipitor 80 mg daily,Digoxin 0.125 mg daily, Imdur ER 30 mg daily, Effient 5 mg BID, Prednisone 30 mg daily Continue current treatment Continue current medications Further recommendations post catheterization Will follow up Plan and treatment discussed with Dr. Joseph
--- NOTE | 2018-08-04 08:19 | PN ---
DATE: 08/03/2018 PULMONARY PROGRESS NOTE REFERRING PHYSICIAN: Pratibha Teresa MD SUBJECTIVE: The patient is seen sitting up at bedside, family present at bedside, no acute distress. No overnight events reported. Reports using CPAP machine last night. States that he still has coughing, but it has improved some. No headache, rhinitis, chest pain, abdominal pain, nausea, vomiting, diarrhea, leg pain or leg swelling reported. States that he still gets short of breath at times, but that has improved as well. OBJECTIVE: VITAL SIGNS: Blood pressure 134/76, pulse 77, temperature 97.8 and oxygen saturation 98% on room air. GENERAL: No acute distress. HEENT: Moist mucous membranes. Crowded airway. NECK: Supple. No JVD. CARDIOVASCULAR: S1 and S2. RESPIRATORY: Few scattered rhonchi. ABDOMEN: Soft and nontender. No distention. No organomegaly. EXTREMITIES: No bilateral lower extremity edema. NEUROLOGIC: Awake, alert and verbal. Follows commands. MEDICATIONS: Reviewed. Tylenol 650 every 6 hours p.r.n., Augmentin one tab every 12 hours,Brovana 15 mcg every 12 hours, aspirin 81 mg daily, Lipitor 80 mg at bedtime, Tessalon Perles 100 mg three times a day, Pulmicort 0.5 mg every 12 hours, digoxin 0.125 mg daily, Cymbalta 30 mg daily, Lovenox 40 mg subcutaneously daily, Pepcid 40 mg at bedtime, Levemir 30 units subcutaneously at bedtime, Humulin R sliding scale a.c. and at bedtime, Imdur 30 mg daily, Singulair 10 mg daily, nitroglycerine sublingual 0.4 mg every 15 minutes p.r.n., Protonix 40 mg at bedtime, Effient 5 mg twice a day and prednisone 30 mg daily. LABORATORY DATA: Reviewed. WBC is 7.6, RBC 5.05, hemoglobin 13.8, hematocrit 41.6 and platelets 200. Sodium 141, potassium 3.9, chloride 104, carbon dioxide 29, anion gap 12, BUN 25, creatinine 0.9, GFR is greater than 60, POC glucose 128, random glucose 139, hemoglobin A1c 7.3, calcium 9.1, phosphorus 3.7, magnesium 2.2 and total bilirubin 0.3. AST 20, ALT 21, alkaline phosphatase 63, lactate dehydrogenase 306, total creatine kinase 78, troponin 0.02, total protein 7.1, albumin 3.7, globulin 3.4 and albumin-globulin ration 1.1. Triglycerides 72, cholesterol 200, LDL cholesterol 129 and HDL cholesterol 34. TSH 1.09. IMPRESSION AND PLAN: Coronary artery disease with history of coronary stent, history of treated leukemia in remission, hypertension, diabetes, acute bronchitis, sleep apnea syndrome. Continue Cardiology follow up. We recommend close cardiopulmonary monitoring once sedated. Continue inhaled bronchodilators, leukotriene inhibitors, antibiotic therapy, deep venous thrombosis prophylaxis, gastric prophylaxis, continue continuous positive airway pressure use at bedtime. Head of bed elevated at 45 degrees. Sleep apnea precautions. This patient is seen and examined by Dr. Quiles. Discussed assessment and plan as described above. This patient was seen and examined with Drew Talley, nurse practitioner. Discussed assessment and plan as described above. Thank you for this consult. We will follow with you. Drew Talley APN Pauline Quiles MD
[2018-08-04] MEDS ORDERED: Sodium Chloride 0.9% 1,000 ML IV SCH (08:30)
[2018-08-04] MEDS: Arformoterol 15 mcg/2 ml Inh Sol IH SCH (08:37)
[2018-08-04] MEDS: Budesonide 0.5 mg/2 ml Inhal Susp UD IH SCH (08:37)
[2018-08-04] MEDS: Insulin Reg-LOW-Coverage SC SCH ×3 (09:00→17:30)
[2018-08-04] MEDS: Amoxicillin-Clav 875-125 mg Tab PO SCH (10:28)
--- NOTE | 2018-08-04 11:30 | PN ---
DATE: 08/04/2018 PULMONARY PROGRESS NOTE REFERRING PHYSICIAN: Pratibha Teresa MD SUBJECTIVE: The patient is seen lying in bed. The patient is status post cardiac catheterization this morning, reports feeling well. He used CPAP machine last night. Cough and shortness of breath have improved some, but still present. No headache, rhinitis, chest pain, abdominal pain, nausea, vomiting, diarrhea, leg pain or leg swelling reported. OBJECTIVE: VITAL SIGNS: Blood pressure 141/73, pulse 80, temperature 98 and oxygen saturation 100% on room air. GENERAL: No acute distress. HEENT: Moist mucous membranes. Crowded airway. NECK: Supple. No JVD. RESPIRATORY: Few scattered rhonchi. CARDIOVASCULAR: S1 and S2. ABDOMEN: Soft and nontender. No distention. No organomegaly. EXTREMITIES: No bilateral lower extremity edema. NEUROLOGIC: Awake, alert and verbal. Follows commands. MEDICATIONS: Reviewed. Tylenol 650 every 6 hours p.r.n., Norvasc 5 mg daily, Augmentin one tab every 12 hours, Brovana 15 mcg inhalation every 12 hours, aspirin 81 mg daily, Lipitor 80 mg at bedtime, Tessalon Perles 100 mg three times a day, Pulmicort 0.5 mg inhalation every 12 hours, Cymbalta 30 mg daily, Lovenox 40 mg subcutaneously daily, Pepcid 40 mg at bedtime, hydralazine 10 mg four times a day p.r.n. systolic blood pressure greater than 160, Levemir 30 units at bedtime, Humulin R sliding scale a.c. and at bedtime, isosorbide mononitrate 60 mg daily, Cozaar 25 mg daily, Singulair 10 mg daily, nitroglycerine 0.4 mg sublingual every 15 minutes p.r.n., Protonix 40 mg at bedtime, Effient 5 mg twice a day and prednisone 30 mg daily. Sodium chloride 0.9% a 1000 mL at 50 mL per hour. LABORATORY DATA: Reviewed. POC glucose 111. Cardiac cath report pending. IMPRESSION AND PLAN: Coronary artery disease with history of coronary stent, history of treated leukemia in remission, hypertension, diabetes, acute bronchitis and sleep apnea syndrome. Continue Cardiology followup. The patient is status post cardiac catheterization this morning. Continue inhaled bronchodilators, antibiotic therapy, leukotriene inhibitors, deep venous thrombosis prophylaxis and gastric prophylaxis. Continue continuous positive airway pressure use at bedtime. Head of bed elevated at 45 degrees. Sleep apnea precautions. We will decrease prednisone to 10 mg daily. This patient is seen and examined by Dr. Quiles. Discussed assessment and plan as described above. This patient was seen and examined with Drew Talley, nurse practitioner. Discussed assessment and plan as described above. Thank you for this consult. We will follow with you. Drew Talley APN Pauline Quiles MD
--- NOTE | 2018-08-04 11:45 | CPOSTOP ---
DATE: 08/04/2018 CARDIOVASCULAR LAB POST PROCEDURE NOTE DICTATING PHYSICIAN: Pauline Joseph MD CENTER LEAD CONSULTANT: CHUCK Moeller. TYPE OF ANESTHESIA: Moderate conscious sedation, total of 1 mg of Versed, 50 of fentanyl given. PRE-PROCEDURE DIAGNOSES: Unstable angina, history of multiple stents, history of multiple myocardial infarction and non-ST elevation myocardial infarction, and acute coronary syndrome. PROCEDURE PERFORMED: Left heart catheterization. FINDINGS: Significant disease, left main; critical disease, in-stent restenosis of LAD; and critical disease in circumflex. FINAL DIAGNOSIS: Left main and left anterior descending artery and circumflex disease which is dominant vessel. POST PROCEDURE: Patient's condition is stable. VASCULAR ACCESS SITE: Right femoral artery. TOTAL RADIATION DOSE: 2778.32 milligray unit. TOTAL FLUORO TIME: 2.2. Pauline Joseph MD
[2018-08-04 12:30] VITALS: RESP 20
--- NOTE | 2018-08-04 13:08 | CARD ---
APPROVED REPORT Date of service: 08/04/2018 Procedure(s) performed: Left Heart Catheterization HISTORY The patient is a 58 year-old male with a history of : previous NV (> 7 days), diabetes mellitus with insulin treatment , previous diagnostic cath, tobacco history() : The patient is a former smoker , previous PCI (The PCI date was 07/28/2017), hypertension , dyslipidemia , Hx of multiple stents, STEMI, NSTEMI admitted with unstable angina. INDICATION The indication(s) include : unstable angina . CASE TECHNIQUE The patient was brought urgently to the Cardiac Catheterization Laboratory in a fasting state and was prepped and draped in a sterile manner. The right femoral groin was infiltrated with 2% Lidocaine subcutaneous anesthesia. A 6 Fr x 11 cm Ximena sheath was inserted into the right femoral artery without difficulty. Coronary angiography was performed using coronary diagnostic catheters. The left coronary system was accessed and visualized with a Diagnostic catheter. The right coronary system was accessed and visualized with a Diagnostic catheter. The left ventricle was accessed and visualized with a 5F PIGTAIL 145 CATH DXT 110 CM catheter. Left ventricular/Aortic Valve gradient assessed on pullback. Left ventriculogram was performed in EVANS projection. Closure device was deployed with a 6 Fr / 7 Fr MynxGrip without any complications. The patient tolerated the procedure well and there were no complications associated with the procedure. Vessel Analysis The patient's coronary anatomy is left dominant. The left main coronary artery is a medium size vessel with diffuse calcification noted throughout this vessel and with significant stenosis. There is a 70% stenosis . whole left main from proximal to Distal segment The left main bifurcates to the left anterior descending and circumflex. The left anterior descending artery is a medium size vessel with diffuse calcification noted throughout this vessel and with significant stenosis. There is a 70-80% stenosis in the proximal segment. Instent restenosis The first diagonal branch is a small size vessel with diffuse calcification noted throughout this vessel and without significant stenosis. The second diagonal branch is a small size vessel with diffuse calcification noted throughout this vessel and without significant stenosis. The circumflex artery is a medium size vessel patent Stent in Mid sement, but has 70-89% stenosis in proximal to Mid segment. The first obtuse marginal branch is a small size vessel with diffuse calcification noted throughout this vessel and without significant stenosis. The second obtuse marginal branch is a small size vessel with diffuse calcification noted throughout this vessel and without significant stenosis. The left posterior descending artery is a medium size vessel with diffuse calcification noted throughout this vessel and without significant stenosis. The right coronary artery is a small size vessel with diffuse calcification noted throughout this vessel and without significant stenosis. There is a 60-70% stenosis in the mid segment. Left Ventricle The left ventricle is borderline in size with Normal contractility. The left ventricular ejection fraction is estimated to be 55%. The left ventricular end diastolic pressure is 20-222 mmHg. There was no gradient across the aortic valve upon pullback. Conclusion Left main, proximal LAD Instent restenosis and Dominant Cx , Proximal to Mid stenosis. Significant progression in CAD In Left main,CX and LAD from previous cath dt. 01/26/2018. Multiple layers os stents and restenosis,Hx of sub acute stet thromobsis. Preserved LV Fx, EF_55%, EDP-20-22 Hx of Ischemic CMP ,stephania LVEf improved, was on life Vest after last STEMI, following Sub-acute stet thrombosis. Recommendations CTS Eval for CABG. Arrangement has been made At [facility] and [facility] to see DR. Patel on Friday at 10:00 am on 08/07/2018. Till continue asa/ effient and other meds as before. CC; Drs. Teresa/ Kb.
[2018-08-04 14:20] LABS: BASO # 0.01 K/mm3 (0.0-2.0); BASO % 0.1 % (0.0-3.0); EOS % 0.1 % (1.5-5.0); HEMOGLOBIN 13.6 g/dL (14.0-18.0); LYMPH # 1.1 (1.2-3.4); LYMPH % 10.3 % (22.0-35.0); MEAN CELL VOLUME 82.2 fl (80.0-105.0); MEAN CORPUSCULAR HEMOGLOBIN 27.2 pg (25.0-35.0); MEAN CORPUSCULAR HGB CONC 33.1 g/dl (31.0-37.0); MEAN PLATELET VOLUME 9.4 fl (7.0-11.0); MONO # 0.5 (0.1-0.6); MONO % 4.7 % (1.0-6.0); RED CELL DISTRIBUTION WIDTH 14.2 % (11.5-14.5); WHITE BLOOD COUNT 10.3 10^3/uL (4.5-11.0)
[2018-08-04 19:05] VITALS: BP 112/70; PULSE 83; TEMP 97.7
--- NOTE | 2018-08-05 00:48 | DS ---
The patient was seen and examined at the bedside on 08/04/2018. CHIEF COMPLAINT: Chest pain and shortness of breath. HISTORY OF PRESENT ILLNESS: Mr. Teodoro Russo is a 58-year-old male with past medical history of coronary artery disease, status post cardiac stenting, leukemia, chemotherapy from [place], completed in 2014, came to my office couple of days ago for upper respiratory tract infection, now came in the hospital with cough, cold, congestion, chest pain, and shortness of breath. We did chest CT, chest x-ray, electrocardiogram, and cardiac catheterization done today by Dr. Joseph, and the patient improved. The patient need to follow up with mutual fund manager, Dr. Joseph, I already spoke to cardiothoracic surgeon in [facility], did appointment, we are discharging the patient, and follow up with primary care physician and mutual fund manager. PAST MEDICAL HISTORY: Insulin-dependent diabetes mellitus not very well controlled, coronary artery disease with cardiac stenting multiple times and history of leukemia, status post chemotherapy from [place]. FAMILY HISTORY: Father and mother noncontributory. HABITS: Never smoked. No drugs. No ethanol. ALLERGIES: THE PATIENT IS NOT ALLERGIC WITH ANY MEDICATIONS. HOME MEDICATIONS: Reviewed by me. REVIEW OF SYSTEMS: The patient was seen and examined at bedside, looking comfortable, status post cath. No fever. No chills. No hematuria. No hematochezia. No headache. No dizziness. No chest pain at this moment. No palpitation. PHYSICAL EXAMINATION: VITAL SIGNS: Blood pressure 140/70, pulse 80, temperature 98, oxygen saturation 100% on room air, and respiratory rate 18. HEENT: Head; normocephalic and atraumatic. Eyes; PERRLA. Extraocular muscles intact. Conjunctivae clear. Nose patent. Mucous membranes moist. NECK: Supple. No carotid bruits. No JVD or thyromegaly. CHEST: Bilaterally symmetrical. HEART: S1 and S2 positive. LUNGS: Clear to auscultation. ABDOMEN: Soft. Bowel sounds present. No organomegaly. EXTREMITIES: No edema. No cyanosis. NEUROLOGIC: The patient is awake, alert, and follow simple commands. MEDICATIONS: Tylenol, Norvasc, Augmentin, Brovana, aspirin, Lipitor, Pulmicort, Lovenox, Pepcid, hydralazine, Levemir sliding scale, isosorbide, Cozaar, and nitroglycerin. LABORATORY DATA: White blood cell 7.6, hemoglobin 13.8, hematocrit 41.6, platelets 200, and glucose 156 and 111. ASSESSMENT AND PLAN: Mr. Teodoro Russo is a 58-year-old male with anemia, insulin-dependent diabetes mellitus type 2, not very well controlled; hemoglobin A1c is 7.3, history of leukemia, status post chemotherapy, came with chest pain, status post upper respiratory tract infection. The patient has a history of multiple stenting. Discussion done with Dr. Joseph, underwent cardiac catheterization this morning, circumflex stenosis got worse from last catheterization. Recommended CTS evaluation for coronary artery bypass graft, Dr Joseph did arrangement, discussion done with the patient. We will repeat labs. We will follow up. Pratibha Teresa MD [id number]
== END 2018-08-04 19:13 | disposition home or self-care (01) | DRG 287 ==
LOC: ED 17:49 → ERH 20:47 → 2RSO 22:54 → OBSVTOIN 08-02 16:00
PROVIDERS: ADMIT Internal Medicine; ATTEND Internal Medicine
PROC: 5A09457 Assistance with Respiratory Ventilation, 24-96 Consecutive Hours, Continuous Positive Airway Pressure (ICD-10-PCS; 2018-08-02)
PROC: 3E0F7GC Introduction of Other Therapeutic Substance into Respiratory Tract, Via Natural or Artificial Opening (ICD-10-PCS; 2018-08-02)
PROC: 4A023N7 Measurement of Cardiac Sampling and Pressure, Left Heart, Percutaneous Approach (ICD-10-PCS; principal; 2018-08-04)
PROC: B2111ZZ Fluoroscopy of Multiple Coronary Arteries using Low Osmolar Contrast (ICD-10-PCS; 2018-08-04)
PROC: B2151ZZ Fluoroscopy of Left Heart using Low Osmolar Contrast (ICD-10-PCS; 2018-08-04)
DX: I25.110 Atherosclerotic heart disease of native coronary artery with unstable angina pectoris (principal); C95.91 Leukemia, unspecified, in remission; T82.855A Stenosis of coronary artery stent, initial encounter; J20.9 Acute bronchitis, unspecified; I10 Essential (primary) hypertension; E11.65 Type 2 diabetes mellitus with hyperglycemia; E78.5 Hyperlipidemia, unspecified; I25.5 Ischemic cardiomyopathy; G47.30 Sleep apnea, unspecified; I25.2 Old myocardial infarction; Y83.1 Surgical operation with implant of artificial internal device as the cause of abnormal reaction of the patient, or of later complication, without mention of misadventure at the time of the procedure; Z92.21 Personal history of antineoplastic chemotherapy; Z79.4 Long term (current) use of insulin; Z87.891 Personal history of nicotine dependence